=== PATIENT | male | born 1965 | race American Indian/Alaskan Native ===

== ENCOUNTER 2017-11-13 06:52 | Day surgery (SDC) | payer MEDICAID, OTHER, SELFPAY ==
--- NOTE | 2017-11-13 | PATH_ITS ---
[facility] Accession Number: [id number] . 01 Material submitted: . PART A: ANTRAL ULCER BIOPSY PART B: BIOPSY OF GE JUNCTION . 02 Diagnosis: A. Antral Ulcer Biopsy: Portions of antral mucosa with patchy erosion and mild chronic gastritis. Negative for H. pylori organisms by H/E stain and by immunohistochemistry studies. Negative for intestinal metaplasia, dysplasia and malignancy. . B. Biopsy of GE Junction: Squamous mucosa with reactive atypia. A PAS stain for fungal organisms is negative for fungal organisms. No well-preserved glandular epithelium identified for evaluation. Negative for dysplasia or malignancy. [facility]/11/16/2017 . 02 Electronically signed: . Babs Alan MD, Pathologist NPI- [id number] . 01 Gross description: . Part A: ANTRAL ULCER BIOPSY: Received in formalin are 3 fragment(s) of mckeon, soft tissue measuring 0.5 x 0.4 x 0.4 cm to 0.2 x 0.2 x 0.2 cm submitted entirely in 1 cassette(s) Part B: BIOPSY OF GE JUNCTION: Received in formalin are multiple fragment(s) of mckeon, soft tissue measuring 0.4 x 0.4 x 0.1 cm in aggregate submitted entirely in 1 cassette(s) /CKI /CKI . 02 Microscopic: . Immunohistochemical stains are performed to further evaluate for the presence of Helicobacter organisms. The patient tissue is stained with monoclonal antibody to Helicobacter pylori (SP48). Positive and negative controls stain appropriately. . RESULT: Block: A1 Helicobacter pylori: Negative. . * This test was developed and its performance characteristics determined by [facility]. It has not been cleared or approved by the U.S. Food and Drug Administration. The FDA has determined that such clearance or approval is not necessary. This test is used for clinical purposes. It should not be regarded as investigational or for research. . 02 Pathologist provided ICD-10: K29.70 . 02 CPT . 258537, 999240, Y10518, 227774 Performed at: 01 [facility] [address] [id number] MD Tylor Matias MD Phone: [phone] Performed at: 02 [place] [id number] [address] [place] [id number] MD Jordan Mcmahon MD Phone: [phone]
[2017-11-13 07:12] VITALS: BP 161/95; PULSE 72; RESP 16; TEMP 36.3; O2SAT 95; BMI 32.1
--- NOTE | 2017-11-13 08:07 | PM.PREOP ---
Pre-operative Note Interval Note Pre-op Check: Yes History & Physical Reviewed by Physician and Yes Exam Performed Changes: No ASA Class (for procedural sedation): III
[2017-11-13] MEDS: fentaNYL 250 MCG/5 ML INJ IV (08:41)
[2017-11-13] MEDS: LIDOCAINE 4% SOLN 50 ML 20 ML TOP (08:42)
--- NOTE | 2017-11-13 08:42 | PM.OP.ENDO ---
Operative Date/Time/Diagnoses Date of procedure: 11/13/17 Time of procedure: 08:44 Pre-op diagnosis: Dysphagia Post-op diagnosis: same (Gastric ulcer) Procedure & Clinicians Study performed: EGD with cold biopsy Same procedure as scheduled: Yes Indications: Dysphagia Surgeon: Jitendra Jackson Procedure Notes SCOAP/Timeout: Performed Procedure in detail: The patient had topical anesthetic applied to oropharynx. She was placed in left lateral decubitus position and underwent IV sedation directed by the surgeon consisting of fentanyl and Versed. A bite block was inserted and the scope was advanced through it into the esophagus. The esophagus was unremarkable except that it seemed a little patulous. GE junction was noted at 40 cm from the incisors. There was some mild inflammation. There was no narrowing.. The stomach insufflated well. There were no lesions seen in the body, or at the incisura. In the pre-pyloric antrum however there was a visible ulcer with slightly raised edges. The pyloric channel was [patent]. The duodenum was unremarkable to the 4th part, though the transition from the 1st to 2nd part of the duodenum lack the usual sharp turn.. The scope was brought back into the stomach and retroflexed. The proximal stomach[was normal in appearance. There was no evidence of a hiatal hernia. Biopsies were taken of the ulcer]. The scope was straightened and brought out through the esophagus again. Biopsies were taken at the GE junction. The scope was removed and the patient tolerated the procedure well. No obvious obstruction of the esophagus was seen. I did note however that the esophagus seemed a little patulous and this may be a motility issue. Scope withdrawal time: Not applicable Sedation minutes: 17 Findings: gastric ulcer (Pre pyloric antrum) and other findings (Possible mild inflammation of the GE junction) Specimen(s): other (Ulcer biopsies and GE junction biopsies) Complications: none Recommendations: Start medication(s) (Proton pump inhibitor) Follow up: weeks (4) Disposition: PACU
[2017-11-13] MEDS: TETRACAINE/BENZOCAINE/BUTAMBEN (CETACAINE) BOTTLE 1 SPRAY TOP (08:43)
[2017-11-13] MEDS: MIDAZOLAM 5 MG/5 ML VIAL IV (08:43)
[2017-11-13 08:45] VITALS: BP 131/85; PULSE 63; RESP 10; O2SAT 99
[2017-11-13 08:51] VITALS: BP 119/80; PULSE 68; RESP 10; TEMP 36.3; O2SAT 98
[2017-11-13] MEDS: SODIUM CHLORIDE 0.9% 1,000 ML 200 ML IV (08:53)
[2017-11-13 08:56] VITALS: BP 120/82; PULSE 65; RESP 10; O2SAT 98
[2017-11-13 09:02] VITALS: BP 126/89; PULSE 66; RESP 16; O2SAT 99
[2017-11-13 09:06] VITALS: BP 126/86; PULSE 67; RESP 14; TEMP 36.8; O2SAT 98
== END 2017-11-13 09:23 | disposition home or self-care (01) ==
PROVIDERS: Visit Provider Specialist
PROC: 0DJ08ZZ Inspection of Upper Intestinal Tract, Via Natural or Artificial Opening Endoscopic (ICD-10-PCS; CPT 43235; principal; 2017-11-13 07:45)
DX: K29.70 Gastritis, unspecified, without bleeding (principal); K25.9 Gastric ulcer, unspecified as acute or chronic, without hemorrhage or perforation; I10 Essential (primary) hypertension
CPT/HCPCS: 43239; 88305; 88312; 88342; 99152; J2250; J3010

== ENCOUNTER 2020-01-31 10:21 | Emergency (ER) | payer MEDICAID, OTHER, SELFPAY ==
[2020-01-31 10:30] VITALS: BP 120/71; PULSE 114; RESP 18; TEMP 36.9; O2SAT 96; BMI 32.3
--- NOTE | 2020-01-31 11:17 | PC.NURSE ---
Patient was prescription glasses and cannot read the visual acuity and did not want to try. He was asked to open his injured eye and tell me how many fingers I was holding up. I was holding up two fingers. He reported seeing two fingers.
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
[2020-01-31 11:52] VITALS: PULSE 86; RESP 19
[2020-01-31] MEDS: THIAMINE 200 MG/2 ML VIAL 100 MG IV (11:56)
[2020-01-31] MEDS: SODIUM CHLORIDE 0.9% 1,000 ML 1000 ML IV (11:56)
[2020-01-31 11:59] VITALS: BP 113/77; PULSE 89; RESP 21; O2SAT 95
[2020-01-31 12:00] VITALS: BP 115/77; PULSE 86; RESP 19; O2SAT 95
[2020-01-31 12:02] LABS: Add Manual Diff / Slide Review NO; Basophils Absolute Auto 100 /uL (0-100); Basophils Percent Auto 0.8 % (0-2); Eosinophils Absolute Auto 100 /uL (0-450); Eosinophils Percent Auto 0.6 % (2-4); Hematocrit 44.1 % (41-53); Hemoglobin 15.3 g/dL (13.5-17.5); Lymphocytes Absolute Auto 3300 /uL (1100-4500); Lymphocytes Percent Auto 31.9 % (25-40); Mean Corpuscular HGB Conc 34.6 % (30-36); Mean Corpuscular Hemoglobin 33.5 PG (26-34); Mean Corpuscular Volume 96.7 fL (80-100); Monocytes Absolute Auto 400 /uL (0-900); Monocytes Percent Auto 4.2 % (3-14); Neutrophils Absolute Auto 6500 /uL (1500-7000); Neutrophils Percent Auto 62.5 % (50-75); Platelet Count 152 X10^3/uL (150-400); Red Blood Cell Count 4.56 X10^6/uL (4.5-5.9); Red Cell Distribution Width 12.8 % (11.6-14.8); White Blood Cell Count 10.5 X10^3/uL (4.5-11.0)
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
[2020-01-31 12:10] LABS: Alanine Aminotransferase 21 IU/L (<50); Albumin 3.8 g/dL (3.5-5.0); Albumin Globulin Ratio 1.1 (1.0-2.8); Alkaline Phosphatase 78 U/L (38-126); Aspartate Aminotransferase 29 IU/L (17-59); BUN Creatinine Ratio 25.6 (6-22); Bilirubin Total 1.1 mg/dL (0.2-1.3); Blood Urea Nitrogen 23 mg/dL (9-20); Calcium 8.2 mg/dL (8.4-10.2); Carbon Dioxide 28 mmol/L (22-32); Chloride 101 mmol/L (98-107); Estimated Glomerular Filt Rate > 60.0 mL/min (>60); Globulin 3.4 g/dL (1.7-4.1); Glucose 258 mg/dL (70-100); HEMOLYSIS < 15 (0-50); Lipase 171 U/L (23-300); Magnesium 2.2 mg/dL (1.6-2.3); Potassium 3.5 mmol/L (3.4-5.1); Sodium 136 mmol/L (137-145); Total Protein 7.2 g/dL (6.3-8.2)
[2020-01-31 12:20] LABS: Troponin I < 0.012 ng/mL (0.01-0.034)
[2020-01-31 12:28] LABS: Procalcitonin < 0.05 ng/mL (<0.5)
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
[2020-01-31 13:35] VITALS: BP 132/72; PULSE 103; RESP 22; O2SAT 97
== END 2020-01-31 13:37 | disposition home or self-care (01) ==
PROVIDERS: Emergency Provider Emergency Medicine
DX: S05.11XA Contusion of eyeball and orbital tissues, right eye, initial encounter (principal); R55 Syncope and collapse; R07.9 Chest pain, unspecified; Y09 Assault by unspecified means
CPT/HCPCS: 36415; 70450; 70480; 71045; 80053; 83690; 83735; 84145; 84484; 85025; 93005; 96360; 99284

== ENCOUNTER 2020-10-07 14:42 | Emergency (ER) | payer MEDICAID, OTHER, SELFPAY ==
[2020-10-07 14:42] VITALS: BP 139/86; PULSE 95; RESP 16; TEMP 37.8; O2SAT 98; BMI 29.0
[2020-10-07 15:13] LABS: Add Manual Diff / Slide Review NO; Basophils Absolute Auto 0 /uL (0-100); Basophils Percent Auto 0.5 % (0-2); Eosinophils Absolute Auto 0 /uL (0-450); Eosinophils Percent Auto 0.3 % (2-4); Hemoglobin 14.1 g/dL (13.5-17.5); Lymphocytes Absolute Auto 700 /uL (1100-4500); Lymphocytes Percent Auto 21.3 % (25-40); Mean Corpuscular HGB Conc 34.4 % (30-36); Mean Corpuscular Volume 98.9 fL (80-100); Monocytes Absolute Auto 400 /uL (0-900); Monocytes Percent Auto 11.3 % (3-14); Neutrophils Absolute Auto 2300 /uL (1500-7000); Neutrophils Percent Auto 66.6 % (50-75); Platelet Count 99 X10^3/uL (150-400); Red Blood Cell Count 4.15 X10^6/uL (4.5-5.9); Red Cell Distribution Width 14.1 % (11.6-14.8); White Blood Cell Count 3.5 X10^3/uL (4.5-11.0)
[2020-10-07 15:18] LABS: Alanine Aminotransferase 75 IU/L (<50); Albumin Globulin Ratio 1.1 (1.0-2.8); Alkaline Phosphatase 75 U/L (38-126); Aspartate Aminotransferase 111 IU/L (17-59); BUN Creatinine Ratio 13.4 (6-22); Bilirubin Total 0.8 mg/dL (0.2-1.3); Blood Urea Nitrogen 11 mg/dL (9-20); Calcium 8.8 mg/dL (8.4-10.2); Carbon Dioxide 28 mmol/L (22-32); Chloride 97 mmol/L (98-107); Estimated Glomerular Filt Rate > 60.0 mL/min (>60); Globulin 3.6 g/dL (1.7-4.1); Glucose 154 mg/dL (70-100); HEMOLYSIS 17 (0-50); Lipase 163 U/L (23-300); Potassium 3.7 mmol/L (3.4-5.1); Sodium 132 mmol/L (137-145); Total Protein 7.6 g/dL (6.3-8.2)
--- NOTE | 2020-10-07 19:06 | ED.GENADULT ---
HPI - General Adult General Chief complaint: Abdominal Pain Stated complaint: COVID +, abd pain Time Seen by Provider: 10/07/20 15:01 Source: patient Mode of arrival: Ambulatory Limitations: no limitations History of Present Illness HPI narrative: 55-year-old gentleman with a history of diabetes and hypertension presents on day 4 of COVID symptoms. He was exposed on Sunday begin feeling unwell on Sunday on Sunday tested positive and today, is having body aches has been vomiting for 24 hours and can not keep liquids down and having increasing abdominal pain. He also notes headache light sensitivity. No specific chest pain or palpitations. No skin changes. No cognitive complaints or gross neurologic complaints other than global weakness. Related Data Home Medications Medication Instructions Recorded Confirmed losartan 50 mg tablet 50 mg PO BID tab 10/17/17 10/17/17 meloxicam 15 mg tablet 11/13/17 Previous Rx's Medication Instructions Recorded omeprazole 20 mg capsule,delayed 20 mg PO BID #60 cap 11/13/17 release benzonatate 100 mg capsule 100 mg PO BID-TID PRN #20 cap 10/07/20 (Agustina Soliz) ondansetron 4 mg disintegrating 4 mg PO Q8H PRN #20 tab 10/07/20 tablet Allergies Allergy/AdvReac Type Severity Reaction Status Date / Time lisinopril [LISINOPRIL] Allergy Unknown Verified 10/07/20 14:42 Review of Systems Review of Systems Narrative: Remainder of complete review of systems is otherwise unremarkable except for that included in the HPI. Patient History Medical History (Updated 10/07/20 @ 19:23 by Amanda Sahu MD) Arthritis of knee, left HTN (hypertension) Surgical History H/O arthroscopy Family History Father Hypertension Brother Cancer Social History household members: family and children Smoking Status: Current every day smoker substance use type: marijuana Smoking Status: Current every day smoker tobacco type: cigarettes alcohol intake frequency: 3 or more drinks per day Alcohol type: beer Substance Use Type: marijuana Exam Narrative Exam Narrative: General: Appears is if he feels unwell but Able to give a complete and coherent history. Well-nourished well-developed HEENT: Moist mucous membranes, normal sclera with reactive pupils, Neck: No JVD, supple Respiratory: Lungs are clear to auscultation, no wheezing no rales no rhonchi. Full and symmetrical air movement Cardiac: Tachycardia with Regular rate and rhythm no murmurs no bruits Abdomen: Soft, diffusely tender with no rebound or guarding, good bowel tones, no flank pain Skin: Warm and dry, no rashes Neurologic: Grossly neurologically intact with no obvious asymmetries or abnormalities. Photosensitivity Extremities: No trauma, well perfused, no lower extremity edema Psych: Cooperative, appropriate insight and affect Initial Vital Signs Initial Vital Signs: Vital Signs Temperature 100.0 F H 10/07/20 14:42 Pulse Rate 95 H 10/07/20 14:42 Respiratory Rate 16 10/07/20 14:42 Blood Pressure 139/86 10/07/20 14:42 Pulse Oximetry 98 10/07/20 14:42 Course Orders Ordered: Discontinued Medications Sodium Chloride (Normal Saline 0.9%) 1,000 mls @ 1,000 mls/hr IV BOLUS ONE Stop: 10/07/20 20:24 Last Infusion: 10/07/20 20:33 Dose: 0 mls/hr Documented by: Admin: 10/07/20 19:28 Dose: 1,000 mls/hr Documented by: JIN Ketorolac Tromethamine (Ketorolac 30 Mg/Ml Vial) 15 mg IV NOW ONE Stop: 10/07/20 19:26 Last Admin: 10/07/20 19:27 Dose: 15 mg Documented by: JIN Ondansetron HCl (Ondansetron 4 Mg/2 Ml Inj) 4 mg IV NOW ONE Stop: 10/07/20 19:26 Last Admin: 10/07/20 19:27 Dose: 4 mg Documented by: JIN Vital Signs Vital signs: Vital Signs - 8 hr 10/07/20 14:42 10/07/20 20:18 Temperature 100.0 F H Pulse Rate 95 H 106 H Respiratory Rate 16 30 H Blood Pressure 139/86 Pulse Oximetry 98 93 Medical Decision Making Lab Data Result diagrams: 10/07/20 15:00 10/07/20 15:00 Labs: Lab Results 10/07/20 10/07/20 Range/Units 15:00 15:00 WBC 3.5 L (4.5-11.0) X10^3/uL RBC 4.15 L (4.5-5.9) X10^6/uL Hgb 14.1 (13.5-17.5) g/dL Hct 41.0 (41-53) % MCV 98.9 (80-100) fL MCH 34.0 (26-34) PG MCHC 34.4 (30-36) % RDW 14.1 (11.6-14.8) % Plt Count 99 L (150-400) X10^3/uL Neut % (Auto) 66.6 (50-75) % Lymph % (Auto) 21.3 L (25-40) % [place] % (Auto) 11.3 (3-14) % Eos % (Auto) 0.3 L (2-4) % Baso % (Auto) 0.5 (0-2) % Neut # (Auto) 2300 (0073-5104) /uL Lymph # (Auto) 700 L (5188-6948) /uL [place] # (Auto) 400 (0-900) /uL Eos # (Auto) 0 (0-450) /uL Baso # (Auto) 0 (0-100) /uL Sodium 132 L (137-145) mmol/L Potassium 3.7 (3.4-5.1) mmol/L Chloride 97 L (98-107) mmol/L Carbon Dioxide 28 (22-32) mmol/L BUN 11 (9-20) mg/dL Creatinine 0.82 (0.66-1.25) mg/dL Estimated GFR > 60.0 (>60) mL/min BUN/Creatinine Ratio 13.4 (6-22) Glucose 154 H (70-100) mg/dL Calcium 8.8 (8.4-10.2) mg/dL Total Bilirubin 0.8 (0.2-1.3) mg/dL AST 111 H (17-59) IU/L ALT 75 H (<50) IU/L Alkaline Phosphatase 75 (38-126) U/L Total Protein 7.6 (6.3-8.2) g/dL Albumin 4.0 (3.5-5.0) g/dL Globulin 3.6 (1.7-4.1) g/dL Albumin/Globulin Ratio 1.1 (1.0-2.8) Lipase 163 (23-300) U/L MDM Narrative Medical decision making narrative: 55-year-old gentleman on day 4 of COVID symptoms with a history of diabetes and hypertension. At this point oxygen saturations remain in the 98-100 range on room air. He is given a L of fluid due to the persistent vomiting and inability to drink. He will be discharged home with instructions for myalgias, Tessalon to control cough and Zofran to control nausea. Clearly reviewed reasons to have him return to the emergency room. Has a high risk for needing to be admitted to the hospital as he is so symptomatic already on day 4 of his disease. Discharge Plan Departure Patient Disposition: Home Clinical Impression: COVID-19 Nausea & vomiting Qualifiers: Vomiting type: unspecified Vomiting Intractability: non-intractable Qualified Code(s): R11.2 - Nausea with vomiting, unspecified Instructions: DI for COVID-19 (Suspected or Confirmed ) Activity Restrictions/Additional Instructions: I am sorry that you are feeling so poorly on day 4 of your COVID infection. Using 400 mg of ibuprofen (2 qhez-egu-gombazx pills) and 1 Tylenol every 6 hours can be very helpful in controlling pain. I will give you a prescription for ondansetron to help with nausea A prescription for Tessalon Perles to help with cough If you find that you are getting so short of breath that your having difficulty walking across the room, you do need to return to the emergency department Please do your best to stay as hydrated as possible I wish you the very best Prescriptions: New ondansetron 4 mg tablet,disintegrating 4 mg PO Q8H PRN (Reason: nausea and vomiting) Qty: 20 RF: 0 benzonatate [Tessalon Perles] 100 mg capsule 100 mg PO BID-TID PRN (Reason: cough) Qty: 20 RF: 0 No Action losartan 50 mg tablet 50 mg PO BID RF: 0 meloxicam 15 mg Tablet RF: 0 omeprazole 20 mg capsule,delayed release(DR/EC) 20 mg PO BID Qty: 60 RF: 4
[2020-10-07] MEDS: KETOROLAC 30 MG/ML VIAL 15 MG IV (19:27)
[2020-10-07] MEDS: ONDANSETRON 4 MG/2 ML INJ IV (19:27)
[2020-10-07] MEDS: SODIUM CHLORIDE 0.9% 1,000 ML 1000 ML IV (19:28)
[2020-10-07 20:18] VITALS: PULSE 106; RESP 30; O2SAT 93
[2020-10-07 20:25] VITALS: BP 135/77
== END 2020-10-07 20:32 | disposition home or self-care (01) ==
PROVIDERS: Emergency Medicine; Emergency Provider Emergency Medicine
DX: U07.1 COVID-19 (principal); R11.2 Nausea with vomiting, unspecified
CPT/HCPCS: 80053; 83690; 85025; 93005; 96361; 96374; 96375; 99284; J1885; J2405

== ENCOUNTER 2020-12-02 14:34 | Observation (INO) | payer MEDICAID, OTHER, SELFPAY ==
[2020-12-02] VITALS (25 sets, daily range): BP systolic 102–126; BP diastolic 56–83; PULSE 80–127; RESP 16–22; TEMP 36.4–36.8; O2SAT 96–100; BMI 26.7
--- NOTE | 2020-12-02 15:23 | ED.GENADULT ---
HPI - General Adult General Chief complaint: Weakness Stated complaint: hypotensive Time Seen by Provider: 12/02/20 14:47 Source: patient Mode of arrival: EMS Limitations: no limitations History of Present Illness HPI narrative: 55-year-old gentleman [facility] and is found to be hypotensive and is transferred to the emergency department for further evaluation. He has a history of alcohol use disorder with multiple ER visits to [facility] for the same. He was diagnosed with COVID-19 at the end of September and 4 days after diagnosis was admitted to [facility] for acute hypoxic respiratory failure. Did receive a full course of remdesivir as well as dexamethasone and eventually left Against Medical Advice on 6 L of oxygen. He had at least 3 additional visits in the interval for alcohol related complaints. Today, he reports that he is having trouble swallowing, coughing, complains of left-sided chest pain that is been there for 5-7 days feels like he got ?punched in the chest?. States that the swallowing issue is an intermittent problem and has been going on for number of years. He continues to complain of exertional dyspnea and fatigue since his discharge home from the hospital. He tells me that he has not had any drug or alcohol use since his hospital discharge. Complains of diffuse abdominal pain but also notes he has not had a bowel movement for the last 4-5 days. Over the last week he is concerned that he is having worsening exertional dyspnea. He stated that he had been increasing activities since his hospital discharge in was back to the point where he could at least ride his bike on a flat surface and over the last week has not been able to do that. Describes no fevers, no orthopnea, no lower extremity edema. No headaches and no jaundice. No recent vomiting. Related Data Home Medications Medication Instructions Recorded Confirmed metformin 500 mg tablet 500 mg PO QAM 12/03/20 12/03/20 Previous Rx's Medication Instructions Recorded ondansetron 4 mg disintegrating 4 mg PO Q8H PRN #20 tab 10/07/20 tablet Allergies Allergy/AdvReac Type Severity Reaction Status Date / Time lisinopril [LISINOPRIL] Allergy Unknown Verified 10/07/20 14:42 Review of Systems Review of Systems Narrative: Remainder of complete review of systems is otherwise unremarkable except for that included in the HPI. Patient History Medical History Alcohol use disorder Arthritis of knee, left COVID-19 HTN (hypertension) Type 2 diabetes mellitus Surgical History H/O arthroscopy Family History Father Hypertension Brother Cancer Social History household members: family and children Smoking Status: Current every day smoker alcohol intake: former substance use type: marijuana Smoking Status: Current every day smoker tobacco type: cigarettes alcohol intake frequency: 3 or more drinks per day Alcohol type: beer Substance Use Type: marijuana Exam Narrative Exam Narrative: General: Healthy appearing, in no acute distress. Able to give a complete and coherent history. Well-nourished well-developed HEENT: Moist mucous membranes, normal sclera with reactive pupils, Neck: No JVD, supple Respiratory: Lungs are clear to auscultation, no wheezing no rales no rhonchi. Full and symmetrical air movement Cardiac: Regular rate and rhythm no murmurs no bruits Chest: Significant pain along left sternal border and with palpation of left-sided chest wall Abdomen: Soft, mild diffuse tenderness in all quadrants without rebound or guarding, good bowel tones, no flank pain Skin: Warm and dry, no rashes Neurologic: Grossly neurologically intact with no obvious asymmetries or abnormalities Extremities: No trauma, well perfused Psych: Cooperative, appropriate insight and affect Initial Vital Signs Initial Vital Signs: Vital Signs Temperature 97.6 F 12/02/20 14:40 Pulse Rate 82 12/02/20 14:40 Respiratory Rate 18 12/02/20 14:40 Blood Pressure 108/65 12/02/20 14:40 Pulse Oximetry 100 12/02/20 14:40 Course Orders Ordered: Discontinued Medications Acetaminophen (Acetaminophen 325 Mg Tablet) 650 mg PO Q6HR PRN PRN Reason: Fever/Mild Pain (1-3) Enoxaparin Sodium (Enoxaparin 30 Mg/0.3 Ml Syringe) 30 mg SUBCUT DAILY [facility] Last Admin: 12/03/20 10:03 Dose: Not Given Documented by: DANTE Folic Acid (Folic Acid 1 Mg Tablet) 1 mg PO DAILY [facility] Last Admin: 12/03/20 10:03 Dose: Not Given Documented by: DANTE Sodium Chloride (Normal Saline 0.9%) 1,000 mls @ 100 mls/hr IV CONT MARIAH Last Admin: 12/03/20 01:49 Dose: Not Given Documented by: DELMY Sodium Chloride (Normal Saline 0.9%) 1,000 mls @ 60 mls/hr IV CONT MARIAH POTASSIUM CHLORIDE IN WATER (Potassium Cl 10 Meq/100 Ml Nina) 10 meq in 100 mls @ 100 mls/hr IV Q1H MARIAH Stop: 12/03/20 04:14 Last Infusion: 12/03/20 08:18 Dose: 0 mls/hr Documented by: Admin: 12/03/20 04:18 Dose: 100 mls/hr Documented by: Infusion: 12/03/20 04:14 Dose: 100 mls/hr Documented by: Admin: 12/03/20 03:14 Dose: 100 mls/hr Documented by: Infusion: 12/03/20 02:40 Dose: 100 mls/hr Documented by: Admin: 12/03/20 01:40 Dose: 100 mls/hr Documented by: Infusion: 12/03/20 01:21 Dose: 100 mls/hr Documented by: Admin: 12/03/20 00:21 Dose: 100 mls/hr Documented by: DELMY Sodium Chloride (Normal Saline 0.9%) 1,000 mls @ 100 mls/hr IV CONT MARIAH Last Infusion: 12/03/20 07:46 Dose: 0 mls/hr Documented by: Admin: 12/03/20 00:52 Dose: 100 mls/hr Documented by: PREETIENDShaheed Sodium Chloride (Normal Saline 0.9%) 1,000 mls @ 1,000 mls/hr IV BOLUS ONE Stop: 12/03/20 08:14 Last Admin: 12/03/20 07:46 Dose: 1,000 mls/hr Documented by: DANTE Ketorolac Tromethamine (Ketorolac 30 Mg/Ml Vial) 15 mg IV NOW ONE Stop: 12/02/20 15:32 Last Admin: 12/02/20 15:40 Dose: 15 mg Documented by: SONYA Lorazepam (Lorazepam 2 Mg/Ml Inj) 0 mg IV CIWAPRN PRN; Protocol PRN Reason: Alcohol Withdrawal Metformin HCl (Metformin Hcl 500 Mg Tablet) 500 mg PO BID [facility] Multivitamins (Multivitamin 1 Tablet) 1 tab PO DAILY [facility] Last Admin: 12/03/20 10:04 Dose: Not Given Documented by: DANTE Naloxone HCl (Naloxone 0.4 Mg/Ml Vial) 0.2 mg IV Q2MIN PRN PRN Reason: Opiate Reversal Non-Formulary Medication (Losartan-Hydrochlorothiazide) 1 tab PO QAM [facility] Ondansetron HCl (Ondansetron 4 Mg/2 Ml Inj) 4 mg IV Q6HR PRN PRN Reason: Nausea And Vomiting Pantoprazole Sodium (Pantoprazole Dr 20 Mg Tablet) 20 mg PO 0600 [facility] Last Admin: 12/03/20 06:04 Dose: 20 mg Documented by: DELMY Thiamine HCl (Thiamine 100 Mg Tablet) 100 mg PO DAILY [facility] Stop: 12/06/20 09:01 Last Admin: 12/03/20 10:04 Dose: Not Given Documented by: DANTE Vital Signs Vital signs: Vital Signs - 8 hr 12/02/20 14:40 12/02/20 15:00 12/02/20 15:30 Temperature 97.6 F Pulse Rate 82 81 80 Respiratory Rate 18 16 20 Blood Pressure 108/65 115/72 110/72 Pulse Oximetry 100 98 100 12/02/20 15:53 12/02/20 16:00 12/02/20 16:15 Temperature Pulse Rate 84 81 81 Respiratory Rate 19 17 18 Blood Pressure 117/74 118/78 Pulse Oximetry 100 100 100 12/02/20 16:30 12/02/20 16:45 12/02/20 17:00 Temperature Pulse Rate 86 83 81 Respiratory Rate 21 19 20 Blood Pressure 123/77 124/80 125/79 Pulse Oximetry 100 100 100 12/02/20 17:15 12/02/20 17:30 Temperature Pulse Rate 85 85 Respiratory Rate 20 20 Blood Pressure 121/80 121/80 Pulse Oximetry 100 99 Medical Decision Making Lab Data Result diagrams: 12/03/20 04:18 12/03/20 04:18 Labs: Lab Results 12/02/20 12/02/20 12/02/20 Range/Units 14:14 14:14 14:14 WBC 8.8 (4.5-11.0) X10^3/uL RBC 4.37 L (4.5-5.9) X10^6/uL Hgb 14.5 (13.5-17.5) g/dL Hct 42.2 (41-53) % MCV 96.6 (80-100) fL MCH 33.2 (26-34) PG MCHC 34.4 (30-36) % RDW 15.2 H (11.6-14.8) % Plt Count 129 L (150-400) X10^3/uL Neut % (Auto) 67.6 (50-75) % Lymph % (Auto) 20.8 L (25-40) % [place] % (Auto) 7.0 (3-14) % Eos % (Auto) 4.0 (2-4) % Baso % (Auto) 0.6 (0-2) % Neut # (Auto) 6000 (2231-6775) /uL Lymph # (Auto) 1800 (1351-7039) /uL [place] # (Auto) 600 (0-900) /uL Eos # (Auto) 400 (0-450) /uL Baso # (Auto) 100 (0-100) /uL D-Dimer 514 H (<230) ng/mL Sodium 135 L (137-145) mmol/L Potassium 3.6 (3.4-5.1) mmol/L Chloride 101 (98-107) mmol/L Carbon Dioxide 26 (22-32) mmol/L BUN 24 H (9-20) mg/dL Creatinine 2.63 H (0.66-1.25) mg/dL Estimated GFR 25.6 L (>60) mL/min BUN/Creatinine Ratio 9.1 (6-22) Glucose 140 H (70-100) mg/dL Hemoglobin A1c (4.0-6.0) % Calcium 9.8 (8.4-10.2) mg/dL Magnesium 2.0 (1.6-2.3) mg/dL Total Bilirubin 2.1 H (0.2-1.3) mg/dL AST 57 (17-59) IU/L ALT 26 (<50) IU/L Alkaline Phosphatase 79 (38-126) U/L Troponin I < 0.012 (0.01-0.034) ng/mL Total Protein 7.9 (6.3-8.2) g/dL Albumin 4.3 (3.5-5.0) g/dL Globulin 3.6 (1.7-4.1) g/dL Albumin/Globulin Ratio 1.2 (1.0-2.8) Lipase 416 H (23-300) U/L 12/02/20 Range/Units 14:14 WBC (4.5-11.0) X10^3/uL RBC (4.5-5.9) X10^6/uL Hgb (13.5-17.5) g/dL Hct (41-53) % MCV (80-100) fL MCH (26-34) PG MCHC (30-36) % RDW (11.6-14.8) % Plt Count (150-400) X10^3/uL Neut % (Auto) (50-75) % Lymph % (Auto) (25-40) % [place] % (Auto) (3-14) % Eos % (Auto) (2-4) % Baso % (Auto) (0-2) % Neut # (Auto) (6942-6516) /uL Lymph # (Auto) (3428-1508) /uL [place] # (Auto) (0-900) /uL Eos # (Auto) (0-450) /uL Baso # (Auto) (0-100) /uL D-Dimer (<230) ng/mL Sodium (137-145) mmol/L Potassium (3.4-5.1) mmol/L Chloride (98-107) mmol/L Carbon Dioxide (22-32) mmol/L BUN (9-20) mg/dL Creatinine (0.66-1.25) mg/dL Estimated GFR (>60) mL/min BUN/Creatinine Ratio (6-22) Glucose (70-100) mg/dL Hemoglobin A1c 7.6 H (4.0-6.0) % Calcium (8.4-10.2) mg/dL Magnesium (1.6-2.3) mg/dL Total Bilirubin (0.2-1.3) mg/dL AST (17-59) IU/L ALT (<50) IU/L Alkaline Phosphatase (38-126) U/L Troponin I (0.01-0.034) ng/mL Total Protein (6.3-8.2) g/dL Albumin (3.5-5.0) g/dL Globulin (1.7-4.1) g/dL Albumin/Globulin Ratio (1.0-2.8) Lipase (23-300) U/L MDM Narrative Medical decision making narrative: 55-year-old gentleman with COVID requiring hospitalization in early December. Continued episodes of intermittent alcohol use. Presents with dehydration general lays acute kidney injury with a jump in creatinine from 0.8 to to 2.63. Initially hypotensive with a systolic of 70 responded nicely to fluids. Bilirubin is elevated at 2.1 but AST and ALT are unremarkable as is alk-phos. Lipase is slightly elevated at 14.6 without abdominal pain or tenderness. He has no evidence of acute infection. At this point, most likely explanation is significant dehydration causing his hypotension and acute bump to creatinine. Will recommend hospitalization for rehydration and continuing to follow creatinine levels. Discharge Plan Departure Patient Disposition: Home Clinical Impression: Acute kidney injury, Acute hypotension
--- NOTE | 2020-12-02 15:31 | DI.RAD.S_ITS ---
PROCEDURE: XR CHEST 1V INDICATIONS: exertional dyspnea TECHNIQUE: One view of the chest was acquired. COMPARISON: [facility], CR, XR CHEST 1V, 01/31/2020, 11:48. [facility], CR, XR CHEST 1 VIEW, 10/13/2020, 2:07. FINDINGS: Surgical changes and devices: None. Lungs and pleura: Lungs are clear. No pleural effusions or pneumothorax. Mediastinum: Mediastinal contours appear normal. Heart size is normal. Bones and chest wall: No suspicious bony lesions. Overlying soft tissues appear unremarkable. IMPRESSION: No acute pulmonary process. Dictated by: Xochilt Roach M.D. on 12/02/2020 at 16:07 Approved by: Xochilt Roach M.D. on 12/02/2020 at 16:08
[2020-12-02 15:38] LABS: Add Manual Diff / Slide Review NO; Basophils Absolute Auto 100 /uL (0-100); Basophils Percent Auto 0.6 % (0-2); Eosinophils Absolute Auto 400 /uL (0-450); Hematocrit 42.2 % (41-53); Hemoglobin 14.5 g/dL (13.5-17.5); Lymphocytes Absolute Auto 1800 /uL (1100-4500); Lymphocytes Percent Auto 20.8 % (25-40); Mean Corpuscular HGB Conc 34.4 % (30-36); Mean Corpuscular Hemoglobin 33.2 PG (26-34); Mean Corpuscular Volume 96.6 fL (80-100); Monocytes Absolute Auto 600 /uL (0-900); Neutrophils Absolute Auto 6000 /uL (1500-7000); Neutrophils Percent Auto 67.6 % (50-75); Platelet Count 129 X10^3/uL (150-400); Red Blood Cell Count 4.37 X10^6/uL (4.5-5.9); Red Cell Distribution Width 15.2 % (11.6-14.8); White Blood Cell Count 8.8 X10^3/uL (4.5-11.0)
[2020-12-02] MEDS: KETOROLAC 30 MG/ML VIAL 15 MG IV (15:40)
[2020-12-02 15:43] LABS: D Dimer 514 ng/mL (<230)
[2020-12-02 15:44] LABS: Alanine Aminotransferase 26 IU/L (<50); Albumin 4.3 g/dL (3.5-5.0); Albumin Globulin Ratio 1.2 (1.0-2.8); Alkaline Phosphatase 79 U/L (38-126); Aspartate Aminotransferase 57 IU/L (17-59); BUN Creatinine Ratio 9.1 (6-22); Bilirubin Total 2.1 mg/dL (0.2-1.3); Blood Urea Nitrogen 24 mg/dL (9-20); Calcium 9.8 mg/dL (8.4-10.2); Carbon Dioxide 26 mmol/L (22-32); Chloride 101 mmol/L (98-107); Estimated Glomerular Filt Rate 25.6 mL/min (>60); Globulin 3.6 g/dL (1.7-4.1); Glucose 140 mg/dL (70-100); HEMOLYSIS < 15 (0-50); Lipase 416 U/L (23-300); Potassium 3.6 mmol/L (3.4-5.1); Sodium 135 mmol/L (137-145); Total Protein 7.9 g/dL (6.3-8.2)
[2020-12-02 15:55] LABS: Troponin I < 0.012 ng/mL (0.01-0.034)
[2020-12-02 21:16] LABS: INR 1.1 (0.9-1.3); Prothrombin Time 12.6 SECONDS (10.1-12.7)
[2020-12-02 21:28] LABS: Alanine Aminotransferase 23 IU/L (<50); Albumin 3.6 g/dL (3.5-5.0); Albumin Globulin Ratio 1.2 (1.0-2.8); Alkaline Phosphatase 59 U/L (38-126); Aspartate Aminotransferase 47 IU/L (17-59); BUN Creatinine Ratio 12.6 (6-22); Bilirubin Total 1.7 mg/dL (0.2-1.3); Blood Urea Nitrogen 23 mg/dL (9-20); Calcium 9.1 mg/dL (8.4-10.2); Carbon Dioxide 27 mmol/L (22-32); Chloride 103 mmol/L (98-107); Estimated Glomerular Filt Rate 39.2 mL/min (>60); Globulin 2.9 g/dL (1.7-4.1); Glucose 168 mg/dL (70-100); HEMOLYSIS < 15 (0-50); Potassium 3.3 mmol/L (3.4-5.1); Sodium 136 mmol/L (137-145); Total Protein 6.5 g/dL (6.3-8.2)
[2020-12-02 21:29] LABS: COVID19 - ADMIT (NP swab/PCR) Negative (Negative)
[2020-12-02 21:37] LABS: NT-proBNP (BNP-Adult 18+) 58 pg/mL (<125)
[2020-12-02 21:52] LABS: Magnesium 1.8 mg/dL (1.6-2.3)
--- NOTE | 2020-12-02 23:51 | P.HP_ITS ---
History of Present Illness History of Present Illness Date Patient Seen: 12/02/20 Time Patient Seen: 19:45 Chief complaint: hypotensive Narrative: Logan Anguiano is a 55-year-old gentleman whom presented to the Outpatient Clinic and was found to be hypotensive and was transferred to the ED for further evaluation. He has a history of alcohol use disorder with multiple ER visits to [facility] for the same. He was diagnosed with COVID-19 at the end of September and 4 days after diagnosis was admitted to [facility] for acute hypoxic respiratory failure. Did receive a full course of remdesivir as well as dexamethasone and eventually left Against Medical Advice on 6 L of oxygen. He had at least 3 additional visits in the interval for alcohol related complaints. Today, he reports that he is having trouble swallowing, coughing, complains of left-sided chest pain that is been there for 5-7 days feels like he got ?punched in the chest?. States that the swallowing issue is an intermittent problem and has been going on for number of years. He continues to complain of exertional dyspnea and fatigue since his discharge home from the hospital. He tells me that he has not had any drug or alcohol use since his hospital discharge. Complains of diffuse abdominal pain but also notes he has not had a bowel movement for the last 4-5 days. Over the last week he is concerned that he is having worsening exertional dyspnea. He stated that he had been increasing activities since his hospital discharge in was back to the point where he could at least ride his bike on a flat surface and over the last week has not been able to do that. Describes no fevers, no orthopnea, no lower extremity edema. No headaches and no jaundice. No recent vomiting. Upon admit patient's vitals are stable temp 97.6?, BP 121/80, HR 85, R 20, O2 saturation 96% on room air. Patient has no elevated WBC, H&H are stable, platelets 129., sodium 135, BUN 24, SHAISTA with creatinine 2.63, last creatinine 0.82, glucose 140, GFR 25.6, last known GFR >60. D-dimer 514, initial troponin WNL, lipase 416, chest x-ray demonstrated no acute cardiopulmonary processes. I personally reviewed EKG normal sinus rhythm with a ventricular rate of [address] or T-wave changes. Patient admitted for acute dehydration resulting in severe hypotension and SHAISTA. Patient History Medical History Alcohol use disorder Arthritis of knee, left COVID-19 HTN (hypertension) Type 2 diabetes mellitus Surgical History H/O arthroscopy Family & Social History Family History Father Hypertension Brother Cancer Social History: household members family,children Prior Living Arrangements House Safety & Behavioral: Feels Safe in Current Yes Environment Been Physically Hurt or No Threatened By a Person Suicidal Ideation Description None Suicide Plan Description No Plan Tobacco & Substance use: Smoking Status Current every day smoker Smoking packs per day 0.5 alcohol intake former alcohol intake frequency 3 or more drinks per day Substance Use Type marijuana Meds Home Medications and Allergies Home Medications Medication Instructions Recorded Confirmed Type losartan 50 mg tablet 50 mg PO BID tab 10/17/17 10/17/17 History meloxicam 15 mg tablet 11/13/17 History omeprazole 20 mg capsule,delayed 20 mg PO BID #60 cap 11/13/17 Rx release benzonatate 100 mg capsule 100 mg PO BID-TID PRN #20 cap 10/07/20 Rx (Tessalon Perllilian) ondansetron 4 mg disintegrating 4 mg PO Q8H PRN #20 tab 10/07/20 Rx tablet Allergies Allergy/AdvReac Type Severity Reaction Status Date / Time lisinopril [LISINOPRIL] Allergy Unknown Verified 10/07/20 14:42 Review of Systems Review of Systems Narrative: All 12 point systems reviewed with the patient and are negative except otherwise documented. Exam Vital Signs (past 8 hours): - 12/02/20 15:53 12/02/20 16:00 12/02/20 16:15 Temperature Pulse Rate 84 81 81 Respiratory Rate 19 17 18 Blood Pressure 117/74 118/78 Pulse Oximetry 100 100 100 12/02/20 16:30 12/02/20 16:45 12/02/20 17:00 Temperature Pulse Rate 86 83 81 Respiratory Rate 21 19 20 Blood Pressure 123/77 124/80 125/79 Pulse Oximetry 100 100 100 12/02/20 17:15 12/02/20 17:30 12/02/20 17:45 Temperature Pulse Rate 85 85 84 Respiratory Rate 20 20 22 Blood Pressure 121/80 121/80 124/82 Pulse Oximetry 100 99 100 12/02/20 18:00 12/02/20 18:15 12/02/20 18:30 Temperature Pulse Rate 86 85 85 Respiratory Rate 21 20 21 Blood Pressure 115/75 115/76 117/77 Pulse Oximetry 98 100 100 12/02/20 18:45 12/02/20 19:00 12/02/20 19:15 Temperature Pulse Rate 84 83 86 Respiratory Rate 20 20 20 Blood Pressure 119/79 126/83 118/75 Pulse Oximetry 99 99 98 12/02/20 19:30 12/02/20 20:00 12/02/20 20:30 Temperature Pulse Rate 88 91 H 91 H Respiratory Rate 21 22 22 Blood Pressure 116/79 102/56 L 119/77 Pulse Oximetry 98 98 97 12/02/20 21:00 12/02/20 21:05 12/02/20 21:10 Temperature 98.3 F 98.3 F Pulse Rate 95 H 127 H 127 H Respiratory Rate 21 17 17 Blood Pressure 109/76 109/76 Pulse Oximetry 97 96 96 Oxygen Delivery Method Room Air Oxygen Flow Rate 0 Narrative Exam Narrative: General: Patient is a well-developed, well-nourished male in no distress at this time. HEENT: Normocephalic, atraumatic, extraocular muscles intact, oral pharynx is clear and mucous membranes are moist. Neck is supple and symmetric, trachea is midline, no adenopathy, no thyroid enlargement, nontender, no masses palpated. Negative for JVD Chest: Normal AP diameter and contour without kyphoscoliosis, no nasal flaring, retractions, or tachypneic labored breathing, able to speak in complete sentences. Lungs: Auscultation of all lung salmeron are dimished equal with mild bibasilar crackles. Cardio: S1 & S2 with regular rate and rhythm without murmur, rubs, or gallops, no carotid bruit, no cardiac pulsations present. Abdomen: Soft nontender, negative for organomegaly, or masses. Bowel sounds are present in all 4 quadrants without guarding or rebound, no CVA tenderness. Musculoskeletal: Muscle strength and tone are equal within normal limits, no deformity, crepitus, effusions, cyanosis, clubbing or edema present. Full range of motion intact radial and pedal pulses are normal. Skin: Warm dry and intact without rashes, ulcerations or petechiae. Neuro: Alert and orientated x3, strength is +5/5 in all extremities, sensation to touch intact, no gross deficits noted of cranial nerves. Psych: Patient has a well-kept appearance, appropriate affect, mental status attitude thought context and judgment are appropriate for age. Objective Labs Result Diagrams: 12/02/20 14:14 12/02/20 20:54 Labs: Laboratory Results - last 24 hr 12/02/20 12/02/20 12/02/20 14:14 14:14 14:14 WBC 8.8 RBC 4.37 L Hgb 14.5 Hct 42.2 MCV 96.6 MCH 33.2 MCHC 34.4 RDW 15.2 H Plt Count 129 L Neut % (Auto) 67.6 Lymph % (Auto) 20.8 L [place] % (Auto) 7.0 Eos % (Auto) 4.0 Baso % (Auto) 0.6 Neut # (Auto) 6000 Lymph # (Auto) 1800 [place] # (Auto) 600 Eos # (Auto) 400 Baso # (Auto) 100 PT INR D-Dimer 514 H Sodium 135 L Potassium 3.6 Chloride 101 Carbon Dioxide 26 BUN 24 H Creatinine 2.63 H Estimated GFR 25.6 L BUN/Creatinine Ratio 9.1 Glucose 140 H Calcium 9.8 Magnesium 2.0 Total Bilirubin 2.1 H AST 57 ALT 26 Alkaline Phosphatase 79 Troponin I < 0.012 NT-Pro-B Natriuret Pep Total Protein 7.9 Albumin 4.3 Globulin 3.6 Albumin/Globulin Ratio 1.2 Lipase 416 H Nasal Screen MRSA (PCR) SARS-CoV-2 (PCR) 12/02/20 12/02/20 12/02/20 20:07 20:10 20:54 WBC RBC Hgb Hct MCV MCH MCHC RDW Plt Count Neut % (Auto) Lymph % (Auto) [place] % (Auto) Eos % (Auto) Baso % (Auto) Neut # (Auto) Lymph # (Auto) [place] # (Auto) Eos # (Auto) Baso # (Auto) PT INR D-Dimer Sodium Potassium Chloride Carbon Dioxide BUN Creatinine Estimated GFR BUN/Creatinine Ratio Glucose Calcium Magnesium 1.8 Total Bilirubin AST ALT Alkaline Phosphatase Troponin I NT-Pro-B Natriuret Pep Total Protein Albumin Globulin Albumin/Globulin Ratio Lipase Nasal Screen MRSA (PCR) Positive for mrsa H SARS-CoV-2 (PCR) Negative 12/02/20 12/02/20 12/02/20 20:54 20:54 20:54 WBC RBC Hgb Hct MCV MCH MCHC RDW Plt Count Neut % (Auto) Lymph % (Auto) [place] % (Auto) Eos % (Auto) Baso % (Auto) Neut # (Auto) Lymph # (Auto) [place] # (Auto) Eos # (Auto) Baso # (Auto) PT 12.6 INR 1.1 D-Dimer Sodium 136 L Potassium 3.3 L Chloride 103 Carbon Dioxide 27 BUN 23 H Creatinine 1.82 H Estimated GFR 39.2 L BUN/Creatinine Ratio 12.6 Glucose 168 H Calcium 9.1 Magnesium Total Bilirubin 1.7 H AST 47 ALT 23 Alkaline Phosphatase 59 Troponin I NT-Pro-B Natriuret Pep 58 Total Protein 6.5 Albumin 3.6 Globulin 2.9 Albumin/Globulin Ratio 1.2 Lipase Nasal Screen MRSA (PCR) SARS-CoV-2 (PCR) Assessment & Plan Assessment & Plan narrative: Patient is Logan Anguiano a 55-year-old male who was referred to the ED after having been found to have severe hypotension 70/50 at an outpatient clinic earlier in the day. Patient had been positive for COVID pneumonia and was hospitalized in October 2020 leaving Against Medical Advice while still on 6 L of oxygen. Patient admitted for acute dehydration resulting in severe hypotension and SHAISTA. 1. Acute dehydration resulting in severe hypotension, Sepsis, and SHAISTA, acute, in the setting of chronic essential hypertension, present on admission -initial vitals BP 109/76, tachycardic HR 127, R 17, O2 saturation 96% on room air. No elevated WBC, H&H are stable, platelets 129., sodium 135, BUN 24, creatinine 2.63, last creatinine 0.82, glucose 140, GFR 25.6, last known GFR >60. D-dimer 514, initial troponin WNL, lipase 416, chest x-ray demonstrated no acute cardiopulmonary processes. SOFA: 5 -patient rehydrated in ED per sepsis protocol -NS at 100 cc/HR for rehydration -repeat CBC, CMP, Mag in a.m. -daily a.m. ortho stats -hold patient's losartan 2. GERD, chronic, present on admission -continue patient's omeprazole 3. History of alcohol abuse disorder, chronic, present on admission -patient has not demonstrated any signs or symptoms of alcohol withdrawal at this time but does have a recurrent history of hospitalizations for withdrawal. -patient placed on CIWA protocol Code status:DNR-verbalized by the patient upon admit Surrogate decision maker: Daniela Michelle Spouse COVID PCR: Negative Last COVID infection October 2020 COVID vaccination: unknown DVT/VTE prophylaxis: Lovenox 30 and SCDs Disposition: Patient admitted for observation estimated length of stay less than 2 midnights I have utilized all available immediate resources to obtain, update, or review the patient's current medications. I confirmed that the patient's advanced care plan is present, Code status is documented and/or surrogate decision maker is listed in the patient's medical record. Time Spent With Patient Critical Care time: I spent a total of [] minutes of critical care time on this patient's care today; this time is exclusive of procedural time. Scores GCS Jess coma scale eye opening: Spontaneous Jess coma scale verbal response: Orientated Jess coma scale motor response: Obey commands Redford coma scale total score: 15 SOFA PaO2/FIO2: >=400 mmHg Platelets: < 150 Bilirubin: 2.0-5.9 mg/dL Hypotension: MAP >= 70 mmHg Jess Coma Scale: 15 Renal: Creatinine 2.0-3.4 mg/dL SOFA Score: 5 Wells' Criteria for PE Clinical signs and symptoms of DVT: No PE is #1 Dx or equally likely: No Heart rate > 100: Yes Immobilization at least 3 days or surg in previous 4 weeks: No History of PE or DVT: No Hemoptysis: No Malignancy w/Treatment within 6 months or palliative: No Wells' PE Score total: 1.5
[2020-12-03] MEDS: POTASSIUM CHLORIDE IN WATER 10 MEQ/100 ML PIGGYBACK 100 MEQ IV ×4 (00:21→04:18)
[2020-12-03 00:40] LABS: Amylase 114 U/L (30-110)
[2020-12-03] MEDS: SODIUM CHLORIDE 0.9% 1,000 ML 100 ML IV (00:52)
[2020-12-03 01:00] VITALS: O2SAT 96
[2020-12-03 04:24] VITALS: BP 104/63; PULSE 87; RESP 22; TEMP 36.7; O2SAT 97
[2020-12-03 05:00] VITALS: O2SAT 96
[2020-12-03 05:20] LABS: Add Manual Diff / Slide Review NO; Basophils Absolute Auto 0 /uL (0-100); Basophils Percent Auto 0.7 % (0-2); Eosinophils Absolute Auto 400 /uL (0-450); Eosinophils Percent Auto 7.3 % (2-4); Hematocrit 38.8 % (41-53); Hemoglobin 13.2 g/dL (13.5-17.5); Lymphocytes Absolute Auto 1700 /uL (1100-4500); Lymphocytes Percent Auto 30.6 % (25-40); Mean Corpuscular HGB Conc 34.1 % (30-36); Mean Corpuscular Hemoglobin 33.1 PG (26-34); Mean Corpuscular Volume 97.1 fL (80-100); Monocytes Absolute Auto 500 /uL (0-900); Monocytes Percent Auto 8.7 % (3-14); Neutrophils Absolute Auto 2900 /uL (1500-7000); Neutrophils Percent Auto 52.7 % (50-75); Platelet Count 101 X10^3/uL (150-400); Red Cell Distribution Width 15.4 % (11.6-14.8); White Blood Cell Count 5.6 X10^3/uL (4.5-11.0)
[2020-12-03 05:44] LABS: Hemoglobin A1C% w Est Avg Glu 7.6 % (4.0-6.0)
[2020-12-03] MEDS: PANTOPRAZOLE DR 20 MG TABLET PO (06:04)
[2020-12-03 06:15] LABS: Alanine Aminotransferase 25 IU/L (<50); Albumin 3.6 g/dL (3.5-5.0); Albumin Globulin Ratio 1.2 (1.0-2.8); Alkaline Phosphatase 62 U/L (38-126); Aspartate Aminotransferase 50 IU/L (17-59); BUN Creatinine Ratio 16.7 (6-22); Bilirubin Total 1.8 mg/dL (0.2-1.3); Blood Urea Nitrogen 23 mg/dL (9-20); Calcium 9.2 mg/dL (8.4-10.2); Carbon Dioxide 29 mmol/L (22-32); Chloride 104 mmol/L (98-107); Estimated Glomerular Filt Rate 53.9 mL/min (>60); Globulin 3.1 g/dL (1.7-4.1); Glucose 99 mg/dL (70-100); HEMOLYSIS < 15 (0-50); Magnesium 1.9 mg/dL (1.6-2.3); Potassium 4.1 mmol/L (3.4-5.1); Sodium 138 mmol/L (137-145); Total Protein 6.7 g/dL (6.3-8.2)
[2020-12-03 06:21] LABS: Procalcitonin 0.12 ng/mL (<0.5)
[2020-12-03 07:03] LABS: Triglycerides 117 mg/dL (35-150)
[2020-12-03] MEDS: SODIUM CHLORIDE 0.9% 1,000 ML 1000 ML IV (07:46)
[2020-12-03 07:59] VITALS: BP 110/70; PULSE 90; RESP 23; TEMP 36.4; O2SAT 96
[2020-12-03 08:00] VITALS: O2SAT 96
--- NOTE | 2020-12-03 09:59 | PC.NURSE ---
Addendum entered by Rom Medel R.N. 12/03/20 10:27: Pt declined w/c and ambulated to exit. Escorted by PROCESSING REP. Pt had all belongings with him at time of dc. Original Note: Pt to dc home per order. Provided dc packet/educational material and gave verbal education. Reviewed home med regimen and instructed to stop taking losartan hctz per provider instruction. Pt states he makes his own f/u appt by calling in to clinic and making same day appt with a provider. He understands that he needs a f/u appt in 1-2 weeks as written by the hospitalist. Removed PIV with cath tip intact. Removed vehicle monitor technician. Pt is calling a family member to set up a ride.
--- NOTE | 2020-12-03 10:02 | PM.DS.1 ---
History of Present Illness History of Present Illness Chief complaint: hypotensive Narrative: Per Karina Mckeon: Logan Anguiano is a 55-year-old gentleman whom presented to the Outpatient Clinic and was found to be hypotensive and was transferred to the ED for further evaluation.? He has a history of alcohol use disorder with multiple ER visits to [facility] for the same.? He was diagnosed with COVID-19 at the end of September and 4 days after diagnosis was admitted to [facility] for acute hypoxic respiratory failure.? Did receive a full course of remdesivir as well as dexamethasone and eventually left Against Medical Advice on 6 L of oxygen.? He had at least 3 additional visits in the interval for alcohol related complaints.? Today, he reports that he is having trouble swallowing, coughing, complains of left-sided chest pain that is been there for 5-7 days feels like he got ?punched in the chest?.? States that the swallowing issue is an intermittent problem and has been going on for number of years.? He continues to complain of exertional dyspnea and fatigue since his discharge home from the hospital.? He tells me that he has not had any drug or alcohol use since his hospital discharge.? Complains of diffuse abdominal pain but also notes he has not had a bowel movement for the last 4-5 days.? Over the last week he is concerned that he is having worsening exertional dyspnea.? He stated that he had been increasing activities since his hospital discharge in was back to the point where he could at least ride his bike on a flat surface and over the last week has not been able to do that. Describes no fevers, no orthopnea, no lower extremity edema.? No headaches and no jaundice.? No recent vomiting. Upon admit patient's vitals are stable temp 97.6?, BP 121/80, HR 85, R 20, O2 saturation 96% on room air.? Patient has no elevated WBC, H&H are stable, platelets 129., sodium 135, BUN 24, SHAISTA with creatinine 2.63, last creatinine 0.82, glucose 140, GFR 25.6, last known GFR >60.? D-dimer 514, initial troponin WNL, lipase 416, chest x-ray demonstrated no acute cardiopulmonary processes.? I personally reviewed EKG normal sinus rhythm with a ventricular rate of [address] or T-wave changes.? Patient admitted for acute dehydration resulting in severe hypotension and SHAISTA. Discharge Providers Provider Date of admission: 12/02/20 19:10 Discharge Date: 12/03/20 Consults: 12/02/20 19:28 Consult to Dietitian, Adult Routine Comment: Reason For Exam: Hx of ETOH abuse 12/02/20 21:38 Consult to Dietitian, Adult Routine Comment: Reason For Exam: weight loss / diabetes Discharge provider: Pineda Burks MD Summary Hospital Course Discharge Diagnosis: 1. Acute dehydration, hypotension, SHAISTA 2. Hypertension 3. GERD 4. History of EtOH abuse Hospital Course: Mr. Anguiano presented with dizziness and an outpatient MD office visit showed his blood pressure in the 70s. He had been having diarrhea and vomiting a few days earlier and had continued taking his losartan-hctz. He was found to have SHAISTA with creatinine of 2.63. His medications were held and he was given IV fluids. His creatinine improved to 1.38 on discharge. He was encouraged to continue to hold his blood pressure medications until following up with his PCP. His blood pressure was normal, and he was discharged home. Exam Vital Signs (past 8 hours): Oxygen Delivery Method Room Air Oxygen Flow Rate 0 Narrative Exam Narrative: GEN: no acute distress HEENT: moist mucous membranes CV: regular rate and rhythm PULM: clear bilaterally Objective Labs Result Diagrams: 12/03/20 04:18 12/03/20 04:18 [facility] Medical History Alcohol use disorder Arthritis of knee, left COVID-19 HTN (hypertension) Type 2 diabetes mellitus Surgical History H/O arthroscopy Family History Father Hypertension Brother Cancer Social History household members: family and children Smoking Status: Current every day smoker alcohol intake: former substance use type: marijuana Discharge Plan Discharge Plan Patient Disposition: Home Provider Discharge Comment: Mr. Anguiano came in to the hospital with low blood pressure. He had some kidney injury initially that improved with IV fluids. His blood pressure improved with IV fluids. He felt better and was able to be discharged home. He should hold off on taking his blood pressure medication losartan-hydrochlorothiazide until seeing his primary doctor. He should follow up with his PCP in 1-2 weeks. Discharge orders & Medications Prescriptions: Continued metformin 500 mg tablet 500 mg PO QAM RF: 0 ondansetron 4 mg tablet,disintegrating 4 mg PO Q8H PRN (Reason: nausea and vomiting) Qty: 20 RF: 0 Discontinued losartan-hydrochlorothiazide 100-12.5 mg tablet 1 tab PO QAM RF: 0 Diet/Activity/Treatments Diet: Low-sodium Visit Report/Discharge Packet Instructions: Acute Kidney Injury, DI for Diabetes Type 2 Discharge Data Attending Provider: Pineda Burks MIPS - DC The patient has current or prior documentation of left ventricular ejection fraction (LVEF) less than 40%, or moderate or severely depressed left ventricular systolic function.: No
--- NOTE | 2020-12-03 10:47 | CM.DANOTE ---
DCP: Case received, EMR reviewed and met with patient. Introduced self and role. Was able to obtain information regarding patient's baseline activity level prior to hospitalization, as well as his current living situation. DCP assessment completed with information currently available. Patient is a 55 year old male who admitted yesterday evening to the care of the hospitalist team. PCP: [facility] (sees different providers). Payer: confirmed: Medicaid/[facility]. Patient came to the hospital via ambulance due to increased weakness. Patient was diagnosed with SHAISTA/hypotension. Patient does have history of alcohol abuse, but has not recently been drinking since his last admission. Met with patient in his room. He is alert and oriented, pleasant. Confirmed that he resides in [place] with his 18 year old daughter and his . Confirmed that he is no longer driving, and uses no DME supplies at his baseline. Did ask him if he was currently using alcohol, and he stated, he is no longer drinking. P: Patient has discharge orders to go home today. Shanna Zapata RN/Director Retail Brand Development Discharge Planning/Care Management Advanced directive, confirm from FAMILY Start: 12/02/20 21:39 Freq: Q24H Status: Discharge Protocol: Document 12/02/20 23:00 MW (Rec: 12/03/20 03:53 MW [id number]) Advance Directive, confirm on record Time 23:00 Person contacted pt Copy received No CM Discharge Assessment Start: 12/03/20 10:45 Freq: Status: Active Protocol: Document 12/03/20 10:45 (Rec: 12/03/20 10:47 [id number]) Discharge Planning Assessment Assigned E D Tech Shanna Zapata RN/Director Retail Brand Development Advance Directives? Yes Advance Directives on File No History Provided By Patient,Medical Record Prior Living Arrangements House Household Members family,children Type of transporation used prior to Relies on Others admit Independent with ADL's Yes Is patient alert and oriented? Yes Caregiver for Another No Barriers to Discharge No Discharge Plan Home Transportation Arrangement Family member Referrals Initiated None needed Whiteboard Updated in Patient Room with Yes name and ext. # of E D Tech Review Status In Process Next Review Type Continued Stay Review
== END 2020-12-03 10:27 | disposition home or self-care (01) ==
LOC: ED 18:08 → AC 19:11 → ICU 12-03 07:46
PROVIDERS: Nurse Practitioner Family; Admitting Provider Internal Medicine; Emergency Provider Emergency Medicine; Referring Provider Emergency Medicine; Visit Provider Internal Medicine
DX: E86.0 Dehydration (principal); I95.9 Hypotension, unspecified; N17.9 Acute kidney failure, unspecified; K21.9 Gastro-esophageal reflux disease without esophagitis; F10.21 Alcohol dependence, in remission; E11.9 Type 2 diabetes mellitus without complications; F17.200 Nicotine dependence, unspecified, uncomplicated; Z66 Do not resuscitate; Z20.822 Contact with and (suspected) exposure to COVID-19; Z79.84 Long term (current) use of oral hypoglycemic drugs
CPT/HCPCS: 36415; 71045; 80053; 82150; 83036; 83690; 83735; 83880; 84145; 84478; 84484; 85025; 85379; 85610; 87635; 87797; 93005; 93010; 96365; 96366; 96375; 99284; C9803; G0378; J1885

== ENCOUNTER → 2021-01-27 16:43 | Outpatient (CLI) | payer MEDICAID, OTHER, SELFPAY ==
[2020-12-02 21:10] VITALS: BMI 26.7
--- NOTE | 2021-01-27 | DI.RAD.S_ITS ---
PROCEDURE: XR PELVIS 1-2V INDICATIONS: PAIN TECHNIQUE: Single view(s) of the pelvis acquired. COMPARISON: None. FINDINGS: Bones: No fractures or dislocations. No suspicious bony lesions. Mild bilateral hip joint degeneration. Partially visualized lateral curvature of this lower lumbar spine. Soft tissues: Visualized bowel gas pattern is normal. No suspicious soft tissue calcifications. IMPRESSION: Mild bilateral hip joint degeneration Dictated by: Rom Catalan M.D. on 01/28/2021 at 13:17 Approved by: Rom Catalan M.D. on 01/28/2021 at 13:18
--- NOTE | 2021-01-27 | DI.RAD.S_ITS ---
PROCEDURE: XR KNEE RT 1TO2V INDICATIONS: PAIN TECHNIQUE: 2 views of the knee were acquired. COMPARISON: None. FINDINGS: Bones: No fractures or dislocations. No suspicious bony lesions. Scattered degenerative subchondral sclerosis and spurring. Moderate narrowing of the lateral joint space. Soft tissues: No joint effusion. No suspicious soft tissue calcifications. IMPRESSION: Moderate knee joint degeneration. Dictated by: Rom Catalan M.D. on 01/28/2021 at 15:56 Approved by: Rom Catalan M.D. on 01/28/2021 at 15:57
== END ==
PROVIDERS: Referring Provider Physician Assistant; Visit Provider Physician Assistant
DX: M16.0 Bilateral primary osteoarthritis of hip (principal); M17.11 Unilateral primary osteoarthritis, right knee; M25.561 Pain in right knee; M25.551 Pain in right hip; M25.552 Pain in left hip
CPT/HCPCS: 72170; 73560

== ENCOUNTER 2021-10-28 18:11 | Emergency (ER) | payer MEDICAID, OTHER, SELFPAY ==
[2020-12-02 21:10] VITALS: BMI 26.7
[2021-10-28 18:36] VITALS: BP 134/79; PULSE 106; RESP 20; TEMP 36.2; O2SAT 98; BMI 30.2
--- NOTE | 2021-10-28 18:44 | DI.RAD.S_ITS ---
PROCEDURE: XR ANKLE RT MIN 3V INDICATIONS: pain TECHNIQUE: 3 views of the ankle were acquired. COMPARISON: None. FINDINGS: Bones: Uhuv-zy-obhjgcyz joint space narrowing and osteophytosis of the tibiotalar joint. Subtalar joint space maintained. Talonavicular joint space maintained. No fractures or dislocations. Ankle mortise is normally aligned. No suspicious bony lesions. Soft tissues: No tibiotalar joint effusion. Achilles tendon appears normal. IMPRESSION: No acute finding. 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 Dictated by: Damir Lei M.D. on 10/28/2021 at 19:08 Approved by: Damir Lei M.D. on 10/28/2021 at 19:09
[2021-10-28 21:35] VITALS: BP 152/86; PULSE 108; RESP 17; O2SAT 97
--- NOTE | 2021-10-28 21:36 | ED.LOWEXIN ---
HPI - Extremity Injury (Lower) General Chief Complaint: Extremity Injury, Lower Stated Complaint: Rt ankle/tendon pain Time Seen by Provider: 10/28/21 21:36 History of Present Illness HPI Narrative: This 56-year-old man comes to the ER. He has a history of acute kidney injury hypotension type 2 diabetes, alcohol use disorder hypertension. He says he has had right foot and ankle pain quite severely for the past week. He was doing a lot of heavy activity about a week ago and it hurt a little bit of the time but really not very badly. Over the past week it has gradually gotten worse and worse to the point where now he can barely move it and barely put weight on it without extreme pain. He has not had fever. He has no symptoms above the knee or throughout the rest of his body. Specifically he does not have fever or chills. Related Data Home Medications Medication Instructions Recorded Confirmed metformin 500 mg tablet 500 mg PO QAM 12/03/20 12/03/20 Previous Rx's Medication Instructions Recorded ondansetron 4 mg disintegrating 4 mg PO Q8H PRN nausea and 10/07/20 tablet vomiting #20 tabs indomethacin 25 mg capsule 25 mg PO BID #10 caps 10/28/21 Allergies Allergy/AdvReac Type Severity Reaction Status Date / Time lisinopril [LISINOPRIL] Allergy Unknown Verified 10/28/21 18:44 Review of Systems Review of Systems Narrative: Complete review of systems is negative other than as noted above. Patient History Medical History Alcohol use disorder Arthritis of knee, left COVID-19 HTN (hypertension) Type 2 diabetes mellitus Surgical History H/O arthroscopy Family History Father Hypertension Brother Cancer Social History household members: family and children Smoking Status: Current every day smoker alcohol intake: former substance use type: marijuana Smoking Status: Current every day smoker tobacco type: cigarettes alcohol intake frequency: 3 or more drinks per day Alcohol type: beer Substance Use Type: marijuana Exam Narrative Exam Narrative: GENERAL: Alert, cooperative and in no distress. HEAD: Atraumatic. Normocephalic. EYES: Sclera are clear without icterus. Extraocular movements are full. ENT: No rhinorrhea NECK: No visible abnormality RESPIRATORY: No respiratory distress GASTROINTESTINAL: Nondistended EXTREMITIES: Right foot and ankle are normal in appearance. He has a normal dorsalis pedis pulse. There is no swelling of the foot or ankle. He has tenderness diffusely at both malleoli, the calcaneus, the Achilles tendon the sole of the foot the dorsum of the foot and the toes and the calf. The Achilles tendon seems to be intact. There is no warmth to palpation. The knee and the hip on the right side are unaffected with full range of motion. NEURO: Nonfocal, normal speech SKIN: No rash or erythema of visible areas PSYCH: Normally oriented. Normal range of affect. Appropriate behavior Initial Vital Signs Initial Vital Signs: Vital Signs Temperature 97.2 F L 10/28/21 18:36 Pulse Rate 106 H 10/28/21 18:36 Respiratory Rate 20 10/28/21 18:36 Blood Pressure 134/79 10/28/21 18:36 Pulse Oximetry 98 10/28/21 18:36 Oxygen Delivery Method 10/28/21 18:36 Course Orders Ordered: ED Orders 10/28/21 18:44 XR ankle RT min 3V Stat Acetaminophen (Acetaminophen 325 Mg Tablet) 975 mg PO NOW ONE Stop: 10/28/21 21:50 Indomethacin (Indomethacin 25 Mg Capsule) 25 mg PO NOW ONE Stop: 10/28/21 21:50 Vital Signs Vital signs: Vital Signs - 8 hr 10/28/21 18:36 10/28/21 21:35 Temperature 97.2 F L Pulse Rate 106 H 108 H Respiratory Rate 20 17 Blood Pressure 134/79 152/86 H Pulse Oximetry 98 97 Oxygen Delivery Method Room Air Room Air MDM - Extremity Injury (Lower) Imaging Data Extremity x-ray #1: Radiologist's Impression: IMPRESSION:? No acute finding.? 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 ? Dictated by: Damir Lei M.D. on 10/28/2021 at 19:08 ? ? Approved by: Damir Lei M.D. on 10/28/2021 at 19:09 ? MDM Narrative Medical decision making narrative: This well-appearing gentleman with tachycardia and hypertension is experiencing extreme pain in his right foot and ankle. Physical examination is normal other than the pain. It is not red or hot or swollen. He has no history of gout and without redness or swelling I am suspicious that gout is not likely. There is no fracture on the x-ray. I do not suspect a tendon rupture in the Achilles. I think analgesics and immobilization and close outpatient follow-up is appropriate. He says the full strength ibuprofen has not been helpful so I will switch him to indomethacin for the short term. Discharge Plan Departure Patient Disposition: Home Clinical Impression: Pain in right ankle and joints of right foot Activity Restrictions/Additional Instructions: I am sorry to your foot and ankle are hurting so badly. There is no fracture. I do not suspect infection. I think you may have and inflammation from the overactivity you did last weekend. Discontinue taking ibuprofen and start taking indomethacin. Take this twice daily. Also take 1000 mg Tylenol every 6 hours. Keep the immobilizer boot on and use the crutches as needed. Ice packs might be helpful as well but do not use them for more than 30 minutes at a time. Follow-up right away for redness or fever. Otherwise, follow up at the clinic in 4 5 days for re-evaluation. Prescriptions: New indomethacin 25 mg capsule 25 mg PO BID Qty: 10 0RF Rx Instructions: administer with food or milk No Action metformin 500 mg tablet 500 mg PO QAM Label Comments: TAKE 1 TABLET BY MOUTH EVERY DAY WITH MEAL ondansetron 4 mg tablet,disintegrating 4 mg PO Q8H PRN (Reason: nausea and vomiting) Qty: 20 0RF
[2021-10-28] MEDS: ACETAMINOPHEN 325 MG TABLET 975 MG PO (21:52)
[2021-10-28] MEDS: INDOMETHACIN 25 MG CAPSULE PO (21:53)
[2021-10-28 22:09] VITALS: BP 153/98; PULSE 92; RESP 16; O2SAT 98
== END 2021-10-28 22:09 | disposition home or self-care (01) ==
PROVIDERS: Emergency Provider Family Medicine Addiction Medicine
DX: M25.571 Pain in right ankle and joints of right foot (principal); R00.0 Tachycardia, unspecified; I10 Essential (primary) hypertension
CPT/HCPCS: 73610; 99283; 99284

== ENCOUNTER 2023-04-12 09:44 | Emergency (ER) | payer MEDICAID, OTHER, SELFPAY ==
[2020-12-02 21:10] VITALS: BMI 26.7
[2023-04-12] VITALS (9 sets, daily range): BP systolic 162–188; BP diastolic 81–101; PULSE 69–106; RESP 11–36; TEMP 36.6; O2SAT 97–100; BMI 25.8
--- NOTE | 2023-04-12 10:12 | ED_ITS ---
HPI - General Adult General Chief complaint: Abdominal Pain Stated complaint: N/V Time Seen by Provider: 04/12/23 10:03 Source: patient and EMS Mode of arrival: EMS Limitations: no limitations History of Present Illness HPI narrative: Patient is a 58-year-old male. Coming from the methadone clinic where he received a dose of Suboxone this morning. Does use fentanyl. States he is constipation because of the fentanyl. Is here because of generalized stomach discomfort. It is difficult for him to describe it much more than that. He states it feels like it is ?upset? is also having nausea. No urinary symptoms. Symptoms been going on for the past week and worsening during this time. Can not remember the last time he had a bowel movement. No prior abdominal surgeries. Related Data Home Medications Medication Instructions Recorded Confirmed metformin 500 mg tablet 500 mg PO QAM 12/03/20 12/03/20 Previous Rx's Medication Instructions Recorded ondansetron 4 mg disintegrating 4 mg PO Q8H PRN nausea and 10/07/20 tablet vomiting #20 tabs indomethacin 25 mg capsule 25 mg PO BID #10 caps 10/28/21 Allergies Allergy/AdvReac Type Severity Reaction Status Date / Time lisinopril [LISINOPRIL] Allergy Unknown Verified 10/28/21 18:44 Review of Systems Review of Systems ROS Unobtainable: All systems reviewed & are unremarkable except as noted in HPI and below Cardiovascular Cardiovascular: Reports system reviewed and no additional complaints, except as documented Respiratory Respiratory: Reports system reviewed and no additional complaints, except as documented Gastrointestinal Gastrointestinal: Reports system reviewed and no additional complaints, except as documented Genitourinary Genitourinary: Reports system reviewed and no additional complaints, except as documented Integumentary/Breasts Skin/Breast: Reports system reviewed and no additional complaints, except as documented Patient History Medical History Alcohol use disorder Type 2 diabetes mellitus COVID-19 Arthritis of knee, left HTN (hypertension) Surgical History H/O arthroscopy Family History Father Hypertension Brother Cancer Social History household members: family and children Smoking Status: Current every day smoker alcohol intake: former substance use type: marijuana Smoking Status: Current every day smoker tobacco type: cigarettes alcohol intake frequency: 3 or more drinks per day Alcohol type: beer Substance Use Type: marijuana Exam Initial Vital Signs Initial Vital Signs: Vital Signs Temperature 97.8 F 04/12/23 09:48 Pulse Rate 106 H 04/12/23 09:48 Respiratory Rate 20 04/12/23 09:48 Blood Pressure 171/90 H 04/12/23 09:48 Pulse Oximetry 97 04/12/23 09:48 Oxygen Delivery Method Room Air 04/12/23 09:48 HENMT Head: normal to inspection and normocephalic Resp Effort & Inspection: normal respiratory effort Auscultation: clear to auscultation bilaterally Cardio Rate: regular rate Rhythm: regular rhythm GI Inspection: normal to inspection and non-distended Palpation: No guarding, No rigid and tender Skin General: no rashes or lesions noted Neuro General: patient alert, patient awake and moves all extremities Extrem General: capillary refill normal Course Orders Ordered: ED Orders 04/12/23 10:12 CT abdomen pelvis w con Stat 04/12/23 10:20 Complete Blood Count AUTO DIFF Stat Comprehensive Metabolic Panel Stat ETOH [Ethanol (ETOH)] Stat Lipase Stat Discontinued Medications Sodium Chloride (Normal Saline 0.9%) 1,000 mls @ 1,000 mls/hr IV BOLUS ONE Stop: 04/12/23 11:10 Last Admin: 04/12/23 10:26 Dose: 1,000 mls/hr Documented By: Ondansetron HCl (Ondansetron 4 Mg/2 Ml Inj) 4 mg IV NOW ONE Stop: 04/12/23 10:12 Last Admin: 04/12/23 10:25 Dose: 4 mg Documented By: Vital Signs Vital signs: Vital Signs - 8 hr 04/12/23 09:48 04/12/23 09:48 04/12/23 09:49 Temperature 97.8 F Pulse Rate 106 H 104 H Respiratory Rate 20 36 H Blood Pressure 171/90 H 171/90 H Pulse Oximetry 97 100 Oxygen Delivery Method Room Air 04/12/23 10:00 04/12/23 10:00 04/12/23 10:30 Temperature Pulse Rate 72 72 Respiratory Rate 11 L 15 Blood Pressure 162/81 H Pulse Oximetry 98 100 Oxygen Delivery Method 04/12/23 10:30 04/12/23 11:00 04/12/23 11:02 Temperature Pulse Rate 88 Respiratory Rate 28 H Blood Pressure 178/101 H 188/93 H Pulse Oximetry 100 Oxygen Delivery Method 04/12/23 11:02 04/12/23 11:06 04/12/23 11:06 Temperature Pulse Rate 72 69 Respiratory Rate 22 25 H Blood Pressure 182/89 H Pulse Oximetry 100 99 Oxygen Delivery Method Medical Decision Making Lab Data Lab results reviewed: Yes I reviewed the patient's lab results. 04/12/23 10:20 04/12/23 10:20 Labs: Lab Results 04/12/23 Range/Units 10:20 WBC 9.7 (4.5-11.0) X10^3/uL RBC 5.14 (4.5-5.9) X10^6/uL Hgb 15.8 (13.5-17.5) g/dL Hct 44.5 (41-53) % MCV 86.6 (80-100) fL MCH 30.8 (26-34) PG MCHC 35.5 (30-36) % RDW 14.0 (11.6-14.8) % Plt Count 196 (150-400) X10^3/uL Neut % (Auto) 79.1 H (50-75) % Lymph % (Auto) 15.8 L (25-40) % Taney % (Auto) 3.9 (3-14) % Eos % (Auto) 0.4 L (2-4) % Baso % (Auto) 0.8 (0-2) % Neut # (Auto) 7700 H (1700-4553) /uL Lymph # (Auto) 1500 (6853-3738) /uL Taney # (Auto) 400 (0-900) /uL Eos # (Auto) 0 (0-450) /uL Baso # (Auto) 100 (0-100) /uL Sodium 136 L (137-145) mmol/L Potassium 3.3 L (3.4-5.1) mmol/L Chloride 98 (98-107) mmol/L Carbon Dioxide 31 (22-32) mmol/L BUN 17 (9-20) mg/dL Creatinine 0.83 (0.66-1.25) mg/dL Estimated GFR > 60 (>60) mL/min BUN/Creatinine Ratio 20.5 (6-22) Glucose 200 H (70-100) mg/dL Calcium 9.7 (8.4-10.2) mg/dL Total Bilirubin 1.8 H (0.2-1.3) mg/dL AST 23 (17-59) IU/L ALT 20 (<50) IU/L Alkaline Phosphatase 100 (38-126) U/L Total Protein 8.5 H (6.3-8.2) g/dL Albumin 4.5 (3.5-5.0) g/dL Globulin 4.0 (1.7-4.1) g/dL Albumin/Globulin Ratio 1.1 (1.0-2.8) Lipase 187 (23-300) U/L Ethyl Alcohol < 10 ( - 10) mg/dL Imaging Data CT scan - abdomen/pelvis: Radiologist's Impression: PROCEDURE: CT ABDOMEN PELVIS W CON INDICATIONS: Generalized abdominal pain TECHNIQUE: After the administration of intravenous contrast, axial sections acquired from the lung bases to the pubic symphysis. Coronal and sagittal reformats were performed. For radiation dose reduction, the following was used: automated exposure control, adjustment of mA and/or kV according to patient size. COMPARISON: [facility], CT, CT ABDOMEN PELVIS WITH CONTRAST, 07/10/2020, 14:37. FINDINGS: Image quality: Diagnostic. Lower Chest: There is a subpleural nodule within the right posterior medial lung base measuring 15 mm, new since the prior examination. ABDOMEN: Liver: Nodular hepatic contour. No focal mass. Gallbladder: No radiopaque gallstones or wall thickening. Biliary ducts: No biliary dilation. Pancreas: No ductal dilation. Spleen: Size is within normal limits. Adrenal Glands: No adrenal nodules. Kidneys and Ureters: No hydronephrosis. No solid mass. No complex renal cystic lesion which requires follow up. Stomach and Bowel: Normal colonic caliber, without significant wall thickening. Normal appendix. Peritoneum: No abnormal intraperitoneal fluid. No free air. Ventral Wall: No significant ventral hernia. Abdominal Nodes: No retroperitoneal or mesenteric adenopathy by size criteria. Vessels: Aorta and inferior vena cava are normal in size. Periesophageal varices at the lateral aspect of the gastroesophageal junction. PELVIS: Pelvic Organs: Unremarkable. Bladder: No bladder wall thickening, accounting for underdistention. Pelvic Nodes: No enlarged lymph nodes. Miscellaneous: No inguinal hernias are seen. Bones: No aggressive osseous abnormality. IMPRESSION: 1. New right lung base nodule. Initial further assessment with PET-CT examination is recommended. 2. Cirrhosis and portal hypertension. 3. Normal appendix. MDM Narrative Medical decision making narrative: CT scan is unremarkable. There is a new pulmonary nodule which I advised the patient about that he needed to follow-up with his primary doctor for further evaluation. Labs are unremarkable. No indication for admission to the hospital or surgical consultation. He was given return precautions. Discharge Plan Departure Patient Disposition: Home Clinical Impression: Abdominal pain, Pulmonary nodule Instructions: DI for Abdominal Pain-Adult Activity Restrictions/Additional Instructions: The CT scan today did show an incidental finding of a pulmonary nodule. It is important that you contact your primary care doctor for a follow-up to have this further evaluated. Continue all of your medications as directed. Prescriptions: No Action metformin 500 mg tablet 500 mg PO QAM Patient Comments: TAKE 1 TABLET BY MOUTH EVERY DAY WITH MEAL ondansetron 4 mg tablet,disintegrating 4 mg PO Q8H PRN (Reason: nausea and vomiting) Qty: 20 0RF indomethacin 25 mg capsule 25 mg PO BID Qty: 10 0RF Rx Instructions: administer with food or milk Stand Alone Forms: Patient Portal/API
[2023-04-12] MEDS: ONDANSETRON 4 MG/2 ML INJ IV (10:25)
[2023-04-12] MEDS: SODIUM CHLORIDE 0.9% 1,000 ML 1000 ML IV (10:26)
[2023-04-12 10:40] LABS: Add Manual Diff / Slide Review NO; Basophils Absolute Auto 100 /uL (0-100); Basophils Percent Auto 0.8 % (0-2); Eosinophils Absolute Auto 0 /uL (0-450); Eosinophils Percent Auto 0.4 % (2-4); Hematocrit 44.5 % (41-53); Hemoglobin 15.8 g/dL (13.5-17.5); Lymphocytes Absolute Auto 1500 /uL (1100-4500); Lymphocytes Percent Auto 15.8 % (25-40); Mean Corpuscular HGB Conc 35.5 % (30-36); Mean Corpuscular Hemoglobin 30.8 PG (26-34); Mean Corpuscular Volume 86.6 fL (80-100); Monocytes Absolute Auto 400 /uL (0-900); Monocytes Percent Auto 3.9 % (3-14); Neutrophils Absolute Auto 7700 /uL (1500-7000); Neutrophils Percent Auto 79.1 % (50-75); Platelet Count 196 X10^3/uL (150-400); Red Blood Cell Count 5.14 X10^6/uL (4.5-5.9); White Blood Cell Count 9.7 X10^3/uL (4.5-11.0)
[2023-04-12 10:50] LABS: Alanine Aminotransferase 20 IU/L (<50); Albumin 4.5 g/dL (3.5-5.0); Albumin Globulin Ratio 1.1 (1.0-2.8); Alkaline Phosphatase 100 U/L (38-126); Aspartate Aminotransferase 23 IU/L (17-59); BUN Creatinine Ratio 20.5 (6-22); Bilirubin Total 1.8 mg/dL (0.2-1.3); Blood Urea Nitrogen 17 mg/dL (9-20); Calcium 9.7 mg/dL (8.4-10.2); Carbon Dioxide 31 mmol/L (22-32); Chloride 98 mmol/L (98-107); Estimated Glomerular Filt Rate > 60 mL/min (>60); Ethanol (ETOH) < 10 mg/dL; Glucose 200 mg/dL (70-100); HEMOLYSIS < 15 (0-50); Lipase 187 U/L (23-300); Potassium 3.3 mmol/L (3.4-5.1); Sodium 136 mmol/L (137-145); Total Protein 8.5 g/dL (6.3-8.2)
== END 2023-04-12 12:24 | disposition home or self-care (01) ==
PROVIDERS: Emergency Provider Emergency Medicine
DX: R10.84 Generalized abdominal pain (principal); R91.1 Solitary pulmonary nodule
CPT/HCPCS: 36415; 74177; 80053; 80320; 83690; 85025; 96361; 96374; 99284; J2405

== ENCOUNTER 2023-07-12 07:07 | Emergency (ER) | payer MEDICAID, OTHER, SELFPAY ==
[2020-12-02 21:10] VITALS: BMI 26.7
[2023-07-12] VITALS (31 sets, daily range): BP systolic 111–178; BP diastolic 70–104; PULSE 113–142; RESP 17–29; O2SAT 96–100; BMI 28.2
--- NOTE | 2023-07-12 07:12 | DI.RAD.S_ITS ---
PROCEDURE: XR CHEST 1V INDICATIONS: overdose TECHNIQUE: One view of the chest was acquired. COMPARISON: , CT, CT ABDOMEN PELVIS W CON, 04/12/2023, 11:27. , CR, XR CHEST 1V, 12/02/2020, 15:46. , CR, XR CHEST 1V, 01/31/2020, 11:48. FINDINGS: Surgical changes and devices: None. Lungs and pleura: Lungs are clear. No pleural effusions or pneumothorax. Mediastinum: Mediastinal contours appear normal. Heart size is normal. Bones and chest wall: No suspicious bony lesions. Overlying soft tissues appear unremarkable. IMPRESSION: No acute cardiopulmonary abnormality is seen. Dictated by: Onur Schroeder M.D. on 07/12/2023 at 8:03 Approved by: Onur Schroeder M.D. on 07/12/2023 at 8:04
--- NOTE | 2023-07-12 07:13 | ED.OVERDOSE ---
HPI - Overdose General Chief Complaint: Toxicology Problem Stated Complaint: OD Time Seen by Provider: 07/12/23 07:11 Source: RN notes reviewed and old records reviewed Mode of arrival: EMS History of Present Illness HPI Narrative: 56-year-old with history of substance abuse, alcohol use disorder, diabetes type 2 who presents with overdose of suspected tranq.Patient told EMS that he took blues.Patient states that he was just wanting to go to sleep. He states he was not trying to harm himself. Patient received Narcan from family as well as [place] [employer]. EMS states he was never hypoxic but was tachycardic but unclear if he was apneic prior to their arrival. They state patient has been agitated but overall cooperative since consistent with similar past. Patient has had overdoses himself in the past. He states he feels very nauseated and uncomfortable. Denies any pain denies any chest pain or shortness of breath. Has not been vomiting. No other GI or urinary symptoms. Patient has not allergy to lisinopril. Does use tobacco daily, does drink alcohol uses marijuana as well as other substances. Related Data Home Medications Medication Instructions Recorded Confirmed metformin 500 mg tablet 500 mg PO QAM 12/03/20 12/03/20 Previous Rx's Medication Instructions Recorded ondansetron 4 mg disintegrating 4 mg PO Q8H PRN nausea and 10/07/20 tablet vomiting #20 tabs indomethacin 25 mg capsule 25 mg PO BID #10 caps 10/28/21 Allergies Allergy/AdvReac Type Severity Reaction Status Date / Time lisinopril [LISINOPRIL] Allergy Unknown Verified 10/28/21 18:44 Review of Systems Review of Systems ROS Unobtainable: All systems reviewed & are unremarkable except as noted in HPI and below Patient History Medical History Alcohol use disorder Type 2 diabetes mellitus COVID-19 Arthritis of knee, left HTN (hypertension) Surgical History H/O arthroscopy Family History Father Hypertension Brother Cancer Social History household members: family and children Smoking Status: Current every day smoker alcohol intake: former substance use type: marijuana Smoking Status: Current every day smoker tobacco type: cigarettes alcohol intake frequency: 3 or more drinks per day Alcohol type: beer Substance Use Type: marijuana Exam Narrative Exam Narrative: GEN: Male, alert and oriented, clear speech. Patient appears to be in moderate distress. Patient appears uncomfortable moves around the bed frequently but does follow commands. HEENT: Atraumatic, pupils are equal round reactive to light, extraocular movements are intact, nares are clear, there is no conjunctival pallor. Throat is clear without any exudates, erythema, tonsillar enlargement or uvular deviation HEART: Regular rate and rhythm without murmur, clicks, rubs. Pulses are equal in upper and lower extremities LUNGS:Lungs clear to auscultation, no wheezes, rales, crackles, chest moves symmetrically ABD:bowel sounds normal, soft, non-tender, no guarding, rebound, rigidity, no masses noted, no hepatosplenomegaly :No CVA tenderness MSCL: Non-tender, no muscle atrophy, muscles strength 5/5 upper and lower extremities, full range of motion, patient able to sit up in the bed as well as lay down in rollover lay on his stomach. NEURO:CN 2-12 intact, sensation normal SKIN: No rash, erythema or other skin changes. Initial Vital Signs Initial Vital Signs: Vital Signs Pulse Rate 133 H 07/12/23 07:08 Respiratory Rate 25 H 07/12/23 07:08 Blood Pressure 178/86 H 07/12/23 07:08 Pulse Oximetry 100 07/12/23 07:08 Oxygen Delivery Method Room Air 07/12/23 07:08 Oxygen Flow Rate 99 07/12/23 07:08 Course Orders Ordered: ED Orders 07/12/23 07:11 Consult to [employer] - Wood Treating Inspector Urgent 07/12/23 07:12 XR chest 1V Stat Acetaminophen Stat Complete Blood Count AUTO DIFF Stat Comprehensive Metabolic Panel Stat Ethanol (ETOH) Stat Hepatic (Liver) Panel Stat Lactate (Lactic Acid) Stat MAG [Magnesium] Stat Prothrombin Time INR Stat Salicylate Stat Troponin & CK Cardiac Panel Stat 07/12/23 08:25 Urine Drug Screen, Rapid Stat 07/12/23 09:05 BMP [Basic Metabolic Panel] Stat Discontinued Medications Sodium Chloride (Normal Saline 0.9%) 1,000 mls @ 1,000 mls/hr IV BOLUS ONE Stop: 07/12/23 08:10 Last Infusion: 07/12/23 08:25 Dose: Infused Documented By: Admin: 07/12/23 07:21 Dose: 1,000 mls/hr Documented By: CANDIE Calcium Gluconate 4.65 meq/ (Sodium Chloride) 60 mls @ 180 mls/hr IV NOW ONE Stop: 07/12/23 08:17 Last Infusion: 07/12/23 08:48 Dose: Infused Documented By: Admin: 07/12/23 08:17 Dose: 180 mls/hr Documented By: RB Lorazepam (Lorazepam 2 Mg/Ml Inj) 0.5 mg IV NOW ONE Stop: 07/12/23 08:03 Last Admin: 07/12/23 08:16 Dose: 0.5 mg Documented By: EMILIANA Lorazepam (Lorazepam 2 Mg/Ml Inj) 0.5 mg IV NOW ONE Stop: 07/12/23 08:52 Last Admin: 07/12/23 08:55 Dose: 0.5 mg Documented By: EMILIANA Naloxone HCl (Naloxone 1 Mg/Ml Syringe) 0.2 mg IV PRN PRN PRN Reason: Opiate Reversal Ondansetron HCl (Ondansetron 4 Mg/2 Ml Inj) 4 mg IV NOW ONE Stop: 07/12/23 07:12 Last Admin: 07/12/23 07:21 Dose: 4 mg Documented By: CANDIE Potassium Chloride (Potassium Chloride 20 Meq Tab) 40 meq PO NOW ONE Stop: 07/12/23 07:59 Last Admin: 07/12/23 08:16 Dose: 40 meq Documented By: EMILIANA Vital Signs Vital signs: Vital Signs - 8 hr 07/12/23 08:00 07/12/23 08:00 07/12/23 08:05 Pulse Rate 127 H Respiratory Rate Blood Pressure 159/92 H 151/82 H Pulse Oximetry 100 07/12/23 08:05 07/12/23 08:10 07/12/23 08:10 Pulse Rate 135 H 126 H Respiratory Rate Blood Pressure 153/96 H Pulse Oximetry 97 100 07/12/23 08:16 07/12/23 08:16 07/12/23 08:20 Pulse Rate 127 H 125 H Respiratory Rate Blood Pressure 146/76 H Pulse Oximetry 100 100 07/12/23 08:20 07/12/23 08:25 07/12/23 08:25 Pulse Rate 116 H Respiratory Rate 23 Blood Pressure 149/78 H 150/74 H Pulse Oximetry 96 07/12/23 08:30 07/12/23 08:30 07/12/23 08:40 Pulse Rate 129 H Respiratory Rate Blood Pressure 164/99 H 149/70 H Pulse Oximetry 98 07/12/23 08:40 07/12/23 08:46 07/12/23 08:46 Pulse Rate 123 H 136 H Respiratory Rate 28 H 24 Blood Pressure 147/73 H Pulse Oximetry 97 100 07/12/23 08:51 07/12/23 08:51 07/12/23 08:56 Pulse Rate 134 H Respiratory Rate Blood Pressure 133/80 152/99 H Pulse Oximetry 98 07/12/23 08:56 07/12/23 09:00 07/12/23 09:02 Pulse Rate 133 H 135 H Respiratory Rate Blood Pressure 132/76 Pulse Oximetry 99 99 07/12/23 09:02 07/12/23 09:18 07/12/23 09:18 Pulse Rate 133 H 137 H Respiratory Rate 29 H Blood Pressure 132/71 Pulse Oximetry 98 99 07/12/23 09:30 07/12/23 09:31 07/12/23 09:31 Pulse Rate 140 H 139 H Respiratory Rate Blood Pressure 138/72 Pulse Oximetry 98 98 07/12/23 10:00 07/12/23 10:30 07/12/23 11:00 Pulse Rate 142 H 126 H 128 H Respiratory Rate 20 Blood Pressure 122/84 Pulse Oximetry 98 98 97 07/12/23 11:08 07/12/23 11:08 07/12/23 11:30 Pulse Rate Respiratory Rate Blood Pressure 122/84 Pulse Oximetry 98 97 MDM - Overdose Lab Data 07/12/23 07:12 07/12/23 09:05 Labs: Lab Results 07/12/23 07/12/23 07/12/23 Range/Units 07:12 08:25 09:05 WBC 11.5 H (4.5-11.0) X10^3/uL RBC 4.39 L (4.5-5.9) X10^6/uL Hgb 13.4 L (13.5-17.5) g/dL Hct 38.7 L (41-53) % MCV 88.2 (80-100) fL MCH 30.5 (26-34) PG MCHC 34.5 (30-36) % RDW 14.1 (11.6-14.8) % Plt Count 219 (150-400) X10^3/uL Neut % (Auto) 73.2 (50-75) % Lymph % (Auto) 19.6 L (25-40) % Schuyler % (Auto) 5.1 (3-14) % Eos % (Auto) 1.5 L (2-4) % Baso % (Auto) 0.6 (0-2) % Neut # (Auto) 8400 H (8556-9005) /uL Lymph # (Auto) 2300 (1968-9657) /uL Schuyler # (Auto) 600 (0-900) /uL Eos # (Auto) 200 (0-450) /uL Baso # (Auto) 100 (0-100) /uL PT 12.0 (9.4-12.5) SECONDS INR 1.0 (0.9-1.3) Sodium 141 140 (137-145) mmol/L Potassium 2.9 L 3.6 (3.4-5.1) mmol/L Chloride 110 H 107 (98-107) mmol/L Carbon Dioxide 25 26 (22-32) mmol/L BUN 17 17 (9-20) mg/dL Creatinine 0.70 0.80 (0.66-1.25) mg/dL Estimated GFR > 60 > 60 (>60) mL/min BUN/Creatinine Ratio 24.3 H 21.3 (6-22) Glucose 106 H 149 H (70-100) mg/dL Lactate 2.7 H 1.4 (0.7-2.1) mmol/L Calcium 7.6 L 9.0 (8.4-10.2) mg/dL Magnesium 1.9 (1.6-2.3) mg/dL Total Bilirubin 0.8 (0.2-1.3) mg/dL Conjugated Bilirubin 0.0 (0.0-0.3) md/dL Unconjugated Bilirubin 0.7 (0.0-1.1) mg/dL AST 26 (17-59) IU/L ALT 19 (<50) IU/L Alkaline Phosphatase 80 (38-126) U/L Total Creatine Kinase 139 (55-170) U/L Troponin I < 0.012 (0.01-0.034) ng/mL Total Protein 6.5 (6.3-8.2) g/dL Albumin 3.7 (3.5-5.0) g/dL Globulin 2.8 (1.7-4.1) g/dL Albumin/Globulin Ratio 1.3 (1.0-2.8) Salicylates < 1.0 (<20) mg/dL U Opiates 300ng/mL cut Negative (Negative) Ur Oxycodone Screen Negative (Negative) Urine Methadone Screen Positive H (Negative) Acetaminophen < 10 (10-30) ug/mL Ur Barbiturates Screen Negative (Negative) U Tricyclic Antidepress Negative (Negative) Ur Phencyclidine Scrn Negative (Negative) Ur Amphetamines Screen Negative (Negative) U Methamphetamines Scrn Negative (Negative) Ur MDMA Scrn (Ecstasy) Negative (Negative) U Benzodiazepines Scrn Negative (Negative) Urine Cocaine Screen Negative (Negative) U Marijuana (THC) Screen Negative (Negative) Urine pH Normal (Normal) Urine Specific [place] Normal (Normal) Ethyl Alcohol < 10 ( - 10) mg/dL Ur Creatinine Normal (Normal) Imaging Data Chest x-ray: Radiologist's Impression: [address] [address] XRay Report Signed Patient: Logan Anguiano MR#: [id number] : 1965 Acct:[id number] Age/Sex: 58 / M Date of Service: 07/12/23 Loc: ED Accession Number: [id number] Procedure: XR chest 1V Ordering Provider: Sharon Lora D.O. PROCEDURE: XR CHEST 1V INDICATIONS: overdose TECHNIQUE: One view of the chest was acquired. COMPARISON: [facility], CT, CT ABDOMEN PELVIS W CON, 04/12/2023, 11:27. [facility], CR, XR CHEST 1V, 12/02/2020, 15:46. [facility], CR, XR CHEST 1V, 01/31/2020, 11:48. FINDINGS: Surgical changes and devices: None. Lungs and pleura: Lungs are clear. No pleural effusions or pneumothorax. Mediastinum: Mediastinal contours appear normal. Heart size is normal. Bones and chest wall: No suspicious bony lesions. Overlying soft tissues appear unremarkable. IMPRESSION: No acute cardiopulmonary abnormality is seen. Dictated by: Onur Schroeder M.D. on 07/12/2023 at 8:03 Approved by: Onur Schroeder M.D. on 07/12/2023 at 8:04 [facility] Narrative Medical decision making narrative: 58-year-old male with known history of substance abuse with unintentional overdose. Patient arrives tachycardic but not hypoxic, alert, uncomfortable after receiving multiple doses of Narcan. Labs patient has a white count 11.5 hemoglobin of 13.4, platelets of 219. INR is 1, potassium is 2.9 with a chloride of 110 sodium of 141 glucose of 106 with otherwise normal renal function electrolytes lactate of 2.7 calcium 7.6 with negative LFTs negative troponin. Patient's alcohol is negative, Tylenol and salicylates are both negative. Magnesium level is 1.9 Chest x-ray shows no acute change. Patient received fluids, 4 mg of Zofran. Patient's potassium and calcium are both low these were replaced. Patient's repeat electrolytes appropriate with a potassium of 3 6 his lactate is 1.4 on repeat. Calcium is 9. Patient's labs have significantly improved, he is still uncomfortable did receive 2 doses of Ativan. Patient's mentation has continued improve over time. He is able to ambulate safely. Patient is felt safe for discharge as needed. Patient met with the [employer] is requesting detox we will look for a bed. Spoke with LIZETTE Hernández at [facility]. Patient has only had 2 doses Suboxone for initial induction does not have to continue but they are happy to see him tomorrow if he does not obtain a detox bed. Patient ambulated to the bathroom several times we discussed plan for detox bed. He appears to have eloped did not tell anyone but has left the department we did reach out to him by phone which he had with a when he arrived and took with him was picked up but hung up. Naloxone at Discharge Meets criteria for naloxone at discharge?: Yes Reason patient is not provided naloxone?: Other reason (patient eloped) Discharge Plan Departure Patient Disposition: Elopement Clinical Impression: Overdose, Hypokalemia Prescriptions: No Action metformin 500 mg tablet 500 mg PO QAM Patient Comments: TAKE 1 TABLET BY MOUTH EVERY DAY WITH MEAL ondansetron 4 mg tablet,disintegrating 4 mg PO Q8H PRN (Reason: nausea and vomiting) Qty: 20 0RF indomethacin 25 mg capsule 25 mg PO BID Qty: 10 0RF Rx Instructions: administer with food or milk
--- NOTE | 2023-07-12 07:20 | PC.NURSE ---
Family called ems. Pt smoked unknown white substance. Hx of fentanyl and tranq use. 2 doses of narcan given in field. Pt answers all questions and is alert. Pt yelling and grunting and states that cannot sit still. pt tachycardic HR 133
[2023-07-12] MEDS: ONDANSETRON 4 MG/2 ML INJ IV (07:21)
[2023-07-12] MEDS: SODIUM CHLORIDE 0.9% 1,000 ML 1000 ML IV (07:21)
[2023-07-12 07:23] LABS: Add Manual Diff / Slide Review NO; Basophils Absolute Auto 100 /uL (0-100); Basophils Percent Auto 0.6 % (0-2); Eosinophils Absolute Auto 200 /uL (0-450); Eosinophils Percent Auto 1.5 % (2-4); Hematocrit 38.7 % (41-53); Hemoglobin 13.4 g/dL (13.5-17.5); Lymphocytes Absolute Auto 2300 /uL (1100-4500); Lymphocytes Percent Auto 19.6 % (25-40); Mean Corpuscular HGB Conc 34.5 % (30-36); Mean Corpuscular Hemoglobin 30.5 PG (26-34); Mean Corpuscular Volume 88.2 fL (80-100); Monocytes Absolute Auto 600 /uL (0-900); Monocytes Percent Auto 5.1 % (3-14); Neutrophils Absolute Auto 8400 /uL (1500-7000); Neutrophils Percent Auto 73.2 % (50-75); Platelet Count 219 X10^3/uL (150-400); Red Blood Cell Count 4.39 X10^6/uL (4.5-5.9); Red Cell Distribution Width 14.1 % (11.6-14.8); White Blood Cell Count 11.5 X10^3/uL (4.5-11.0)
[2023-07-12 07:39] LABS: Acetaminophen < 10 ug/mL (10-30); Alanine Aminotransferase 19 IU/L (<50); Albumin 3.7 g/dL (3.5-5.0); Albumin Globulin Ratio 1.3 (1.0-2.8); Alkaline Phosphatase 80 U/L (38-126); Aspartate Aminotransferase 26 IU/L (17-59); BUN Creatinine Ratio 24.3 (6-22); Bilirubin Total 0.8 mg/dL (0.2-1.3); Bilirubin Unconjugated 0.7 mg/dL (0.0-1.1); Blood Urea Nitrogen 17 mg/dL (9-20); Calcium 7.6 mg/dL (8.4-10.2); Carbon Dioxide 25 mmol/L (22-32); Chloride 110 mmol/L (98-107); Creatine Kinase 139 U/L (55-170); Estimated Glomerular Filt Rate > 60 mL/min (>60); Ethanol (ETOH) < 10 mg/dL; Globulin 2.8 g/dL (1.7-4.1); Glucose 106 mg/dL (70-100); HEMOLYSIS < 15 (0-50); Lactate (Lactic Acid) 2.7 mmol/L (0.7-2.1); Potassium 2.9 mmol/L (3.4-5.1); Salicylate < 1.0 mg/dL (<20); Sodium 141 mmol/L (137-145); Total Protein 6.5 g/dL (6.3-8.2)
[2023-07-12 07:50] LABS: Troponin I < 0.012 ng/mL (0.01-0.034)
[2023-07-12] MEDS: LORazepam 2 MG/ML INJ 0.5 MG IV ×2 (08:16→08:55)
[2023-07-12] MEDS: POTASSIUM CHLORIDE 20 MEQ TAB 40 MEQ PO (08:16)
[2023-07-12] MEDS: CALCIUM GLUCONATE 4.65 MEQ in SODIUM CHLORIDE 0.9% 50 ML 180 MEQ IV (08:17)
[2023-07-12 08:26] LABS: Magnesium 1.9 mg/dL (1.6-2.3)
[2023-07-12 08:39] LABS: UR Morphine/Opiate cutoff 300 Negative (Negative); Ur Creatinine Normal (Normal); Ur Specific Gravity Normal (Normal); Urine Amphetamines Negative (Negative); Urine Barbiturates Negative (Negative); Urine Benzodiazepines Negative (Negative); Urine Cocaine Negative (Negative); Urine MDMA Negative (Negative); Urine Methadone Positive (Negative); Urine Methamphetamines Negative (Negative); Urine Oxycodone Negative (Negative); Urine Phencyclidine Negative (Negative); Urine Tetrahydrocannabinol Negative (Negative); Urine Tricyclic Antidepressant Negative (Negative); Urine pH Normal (Normal)
[2023-07-12 08:53] LABS: Reflexed Lactate in 2 Hours Y
[2023-07-12 09:29] LABS: BUN Creatinine Ratio 21.3 (6-22); Blood Urea Nitrogen 17 mg/dL (9-20); Carbon Dioxide 26 mmol/L (22-32); Chloride 107 mmol/L (98-107); Estimated Glomerular Filt Rate > 60 mL/min (>60); Glucose 149 mg/dL (70-100); HEMOLYSIS < 15 (0-50); Lactate 2HR (Lactic Acid Rflx) 1.4 mmol/L (0.7-2.1); Potassium 3.6 mmol/L (3.4-5.1); Sodium 140 mmol/L (137-145)
--- NOTE | 2023-07-12 12:31 | CM.SWNOTE ---
[facility] [place] Note: INSURANCE INSTRUCTOR - Regeneration Operator Assessment INSURANCE INSTRUCTOR - Regeneration Operator Assessment Time Spent with Patient Start date 07/12/23 Visit Start Time 11:23 End date 07/12/23 Visit End Time 11:45 Total time Care Management spent on 22 Minutes patient visit-in minutes Mental Health Screening Include Onset, Duration, Intensity Presenting Problem Patient presents to this ED after an accidental overdose via fentanyl, blues. Precipitating Event(s) Pt explains he started Medication Assisted Treatment (suboxone) at [facility] on , . Pt reports he missed a dose yesterday, 07/10, and he was offered to share blues with his cousins who stopped at this home last night. Pt reports this morning, a friend stopped by and offered him white fentanyl which he smoked. Pt explains his family members had administered narcan and was also administered by EMS. Patient Strengths Pt has started care at [facility] recently and recognized he needs support in detoxing. Pt works closely with Primary Care Provider at [facility]. Current Behavioral Health Provider(s) [facility] - Include Facility, Provider, Ph. # Counselor, Ynes (ph#). Psych. Hx Mental Health and Chemical Hx of polysubstance use Dependency Alcohol use disorder Diabetes Type 2 Family Hx of Behavioral Abuse Pt did not disclose. Psychiatric Hospitalizations (date(s)/ None reported. location) Psychosocial information & Support Pt is a 58yo male, resident of [facility], lives alone. 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 Pt is and has three adult children. 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 Legal Concerns Legal Matters - Outstanding Issues None reported. Mental Status Orientation (Person/Place/Time) A/Ox4 Stated Mood scared, tired Affect (Congruent with Mood?) Congruent with mood Thought Content - Specify/Describe Pt denies having any delusions Obsessions, Delusions, Hallucinations or A/V Hallucinations. Thought Processes (Himrjtx-Joasfnkk-Bzmk Tangential, disorganized. Qbuwqjhn-Dxvsmzyh-Kacknvhtid- Paicedckupuozo-Qtflrbs-Qmnnudbtkfin- Thought Blocking) Speech (Dzexqe-Vqkd-Nbkdadp-Rapid-Soft- Pressured, slurred. Loud-Pressured) Motor (Wfemur-Rstxelkyx-Pghv-Other) Excessive, pt reports he is experiencing involuntary muscle movements and believes it could be attributed to his substance use today. During this assessment, pt was pacing and attempting to stretch, pt reports having arthritis in his hips which also makes him need to get up every ten minutes. Insight (Wfxk-Plnj-Ymue/Limited) Fair/limited Judgement (Ciek-Madd-Lcmo/Limited) Fair/limited Impulse Control (Adequate-Impaired) Impaired/limited Memory (Awdiuwvvb-Mgowkv-Crkmbg, Intact Impaired-Intact) Concentration (Intact-Impaired) Intact Attention (Intact-Impaired) Intact Behavior (Appropriate-Inappropriate) Appropriate Additional Comment Pt is calm, cooperative during the time of this assessment. Risk Assessment Suicidal Ideation (Plan) No Homicidal Ideation (Plan) No Intervention Intervention INSURANCE INSTRUCTOR meets with patient in room , introduced self and role. INSURANCE INSTRUCTOR inquired about pt's presentation and discovered that pt missed one suboxone dose (started last , ) which may have attributed to him succumbing to pressure from cousins who visited his home with illicit substances. Pt states it was an accidental overdose as he usually does blues only but took a hit of the white stuff and didn't realize how potent it is. Pt denies any recent triggers or stressful events which could attribute to continued use other than the accessibility to substances due to his family and community who use substances daily. Pt explains he had to bury my only son in March, would not disclose reason of , but explained that his other children who are alive and live in [place] also use substances at times. INSURANCE INSTRUCTOR discussed pt's attempt at utilizing Medication Assisted Treatment. INSURANCE INSTRUCTOR discussed referral to detox at this time. Pt was enthusiastic about a referral to detox and discussed a preference to the detox center in [place]. Pt provided consent for this INSURANCE INSTRUCTOR to inquire about bed census and send a referral once medically cleared. AT this time, it is the opinion of this INSURANCE INSTRUCTOR that patient attend a detox program before returning home to community outpatient services at [facility]. INSURANCE INSTRUCTOR reviews the above with Dr. Lora, who indicates agreement. Plan RA Plan Once patient is medically clear, INSURANCE INSTRUCTOR will begin search for open detox bed for patient. LIVE Marquez
--- NOTE | 2023-07-12 14:29 | PC.NURSE ---
patient eloped from room 2. DEWAYNE RN looked in all bathrooms and alerted security.
--- NOTE | 2023-07-12 14:33 | PC.NURSE ---
Charge nurse called his cell phone and left a message.
== END 2023-07-12 14:35 | disposition left against medical advice (07) ==
PROVIDERS: Emergency Provider Emergency Medicine
DX: T50.901A Poisoning by unspecified drugs, medicaments and biological substances, accidental (unintentional), initial encounter (principal); E87.6 Hypokalemia; R00.0 Tachycardia, unspecified
CPT/HCPCS: 36415; 71045; 80048; 80053; 80076; 80305; 80320; 80329; 82550; 83605; 83735; 84484; 85025; 85610; 96361; 96374; 96375; 96376; 99284; G0480; J0612; J2060; J2405

== ENCOUNTER 2024-01-31 23:29 | Emergency (ER) | payer MEDICAID, OTHER, SELFPAY ==
[2020-12-02 21:10] VITALS: BMI 26.7
[2024-01-31 23:33] VITALS: BP 161/95; PULSE 85; RESP 18; TEMP 36.5; O2SAT 100; BMI 28.1
--- NOTE | 2024-01-31 23:49 | DI.CT.S_ITS ---
PROCEDURE: CT ABDOMEN PELVIS W CON INDICATIONS: R SIDED ABD PAIN, N/V X 1 DAY TECHNIQUE: After the administration of intravenous contrast, axial sections acquired from the lung bases to the pubic symphysis. Coronal and sagittal reformats were performed. For radiation dose reduction, the following was used: automated exposure control, adjustment of mA and/or kV according to patient size. COMPARISON: [facility], CT, CT ABDOMEN PELVIS W CON, 04/12/2023, 11:27. FINDINGS: Image quality: Diagnostic. Lower Chest: Chronic focal subpleural cystic changes in the medial right costophrenic sulcus. Normal heart size. No hiatal hernia. ABDOMEN: Liver: Marked left lobe hepatomegaly. Mild steatosis. No focal mass. Gallbladder: No wall thickening or calcified stones. Biliary ducts: No biliary dilation. Pancreas: Normal size and morphology without visible ductal dilatation or inflammation. Spleen: Size is within normal limits. Adrenal Glands: No adrenal nodules. Kidneys and Ureters: Symmetric enhancement. No nephrolithiasis or hydronephrosis. No hydroureter. Occasional cortical cysts Stomach and Bowel: Partially decompressed stomach with mild mucosal hyperemia. Normal small bowel loops. Normal appendix. Occasional colonic diverticulosis. No focal wall thickening or inflammation. Peritoneum: No abnormal intraperitoneal fluid. No free air. Ventral Wall: No significant ventral hernia. Abdominal Nodes: No retroperitoneal or mesenteric adenopathy by size criteria. Vessels: The abdominal aorta, IVC, and portal vein are of normal caliber. Attenuated splenic vein. Perigastric varices at the gastric cardia. PELVIS: Pelvic Organs: Moderate prostatomegaly. Bladder: No stones or wall thickening. Pelvic Nodes: No enlarged lymph nodes. Miscellaneous: No inguinal hernias are seen. Bones: No aggressive osseous abnormality. IMPRESSION: No explanation for right-sided abdomen pain. Stable, probably cirrhotic liver morphology and findings of compensated portal hypertension including perigastric varices. Moderate prostatomegaly. Dictated by: Adri Rivera M.D. on 02/01/2024 at 0:58 Approved by: Adri Rivera M.D. on 02/01/2024 at 1:06
[2024-01-31] MEDS: MORPHINE 4 MG/ML INJ IV (23:56)
[2024-01-31] MEDS: SODIUM CHLORIDE 0.9% 1,000 ML 1000 ML IV (23:56)
[2024-01-31] MEDS: ONDANSETRON 4 MG/2 ML INJ IV (23:56)
--- NOTE | 2024-01-31 23:58 | EKG_ITS ---
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
--- NOTE | 2024-01-31 23:59 | EKG_ITS ---
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
--- NOTE | 2024-01-31 23:59 | ED.ABDPAIN ---
HPI - Abdominal Pain General Chief Complaint: Abdominal Pain Stated Complaint: abd pain, vomiting Time Seen by Provider: 01/31/24 23:30 Source: patient Mode of arrival: Ambulatory History of Present Illness HPI narrative: 59-year-old male with history of Hypertension, polysubstance Use, type 2 diabetes, history of alcohol use disorder presents by private vehicle from home for innumerable episodes of vomiting as well as right-sided abdominal pain. Patient states that he has completely emptied his stomach but he continues to vomit. Denies recent alcohol consumption. Related Data Home Medications Medication Instructions Recorded Confirmed losartan 50 mg tablet 50 mg PO DAILY 01/31/24 01/31/24 metformin 500 mg tablet 500 mg PO BID 01/31/24 01/31/24 Previous Rx's Medication Instructions Recorded ondansetron 4 mg disintegrating 4 mg PO Q8H PRN nausea and 02/01/24 tablet vomiting #30 tabs Allergies Allergy/AdvReac Type Severity Reaction Status Date / Time lisinopril [LISINOPRIL] Allergy Unknown Verified 10/28/21 18:44 Patient History Medical History Alcohol use disorder Type 2 diabetes mellitus COVID-19 Arthritis of knee, left HTN (hypertension) Surgical History H/O arthroscopy Family History Father Hypertension Brother Cancer Social History household members: family and children Smoking Status: Current every day smoker alcohol intake: former substance use type: marijuana Smoking Status: Current every day smoker tobacco type: cigarettes alcohol intake frequency: holidays/special occasions only Alcohol type: beer Substance Use Type: marijuana Exam Initial Vital Signs Initial Vital Signs: Vital Signs Temperature 97.7 F 01/31/24 23:33 Pulse Rate 85 01/31/24 23:33 Respiratory Rate 18 01/31/24 23:33 Blood Pressure 161/95 H 01/31/24 23:33 Pulse Oximetry 100 01/31/24 23:33 Oxygen Delivery Method Room Air 01/31/24 23:33 Const: Awake, alert, uncomfortable, nontoxic appearing Cardiac: regular rate, regular rhythm RESP: unlabored, clear bilaterally, no wheezing GI: Soft, right upper and lower quadrant tenderness to deep palpation without rebound or guarding Skin: Warm, Dry, intact, no rashes Neuro: AO x3, CN II-XII grossly intact, moves all extremities Course Orders Ordered: ED Orders 01/31/24 23:45 Urine Culture Stat Urine Microscopic Stat 01/31/24 23:49 CT abdomen pelvis w con Stat CBC Auto Diff [Complete Blood Count AUTO DIFF] Stat CMP [Comprehensive Metabolic Panel] Stat Lactate (Lactic Acid) Stat Lipase Stat EKG-12 Lead Stat Discontinued Medications Sodium Chloride (Normal Saline 0.9%) 1,000 mls @ 1,000 mls/hr IV BOLUS ONE Stop: 02/01/24 00:48 Last Infusion: 02/01/24 01:10 Dose: Infused Documented By: Admin: 01/31/24 23:56 Dose: 1,000 mls/hr Documented By: REEMA Morphine Sulfate (Morphine 4 Mg/Ml Inj) 4 mg IV NOW ONE Stop: 01/31/24 23:50 Last Admin: 01/31/24 23:56 Dose: 4 mg Documented By: REEMA Ondansetron HCl (Ondansetron 4 Mg/2 Ml Inj) 4 mg IV NOW ONE Stop: 01/31/24 23:50 Last Admin: 01/31/24 23:56 Dose: 4 mg Documented By: REEMA Vital Signs Vital signs: Vital Signs - 8 hr 01/31/24 23:33 02/01/24 00:14 02/01/24 00:32 Temperature 97.7 F Pulse Rate 85 118 H 106 H Respiratory Rate 18 28 H Blood Pressure 161/95 H Pulse Oximetry 100 97 97 Oxygen Delivery Method Room Air 02/01/24 00:33 02/01/24 00:33 02/01/24 01:00 Temperature Pulse Rate 111 H 110 H Respiratory Rate 17 17 Blood Pressure 133/94 H Pulse Oximetry 97 100 Oxygen Delivery Method Room Air 02/01/24 01:02 02/01/24 01:02 Temperature Pulse Rate 110 H Respiratory Rate 22 Blood Pressure 157/94 H Pulse Oximetry 100 Oxygen Delivery Method Room Air MDM - Abdominal Pain Differential Diagnosis Differential diagnosis: Likely abdominal pain, acute appendicitis and calculus of kidney Lab Data 01/31/24 23:49 01/31/24 23:49 Labs: Lab Results 01/31/24 01/31/24 Range/Units 23:45 23:49 WBC 12.9 H (4.5-11.0) X10^3/uL RBC 5.41 (4.5-5.9) X10^6/uL Hgb 16.0 (13.5-17.5) g/dL Hct 48.1 (41-53) % MCV 89.0 (80-100) fL MCH 29.7 (26-34) PG MCHC 33.3 (30-36) % RDW 14.4 (11.6-14.8) % Plt Count 190 (150-400) X10^3/uL Neut % (Auto) 83.8 H (50-75) % Lymph % (Auto) 11.5 L (25-40) % [place] % (Auto) 3.7 (3-14) % Eos % (Auto) 0.3 L (2-4) % Baso % (Auto) 0.7 (0-2) % Neut # (Auto) 95273 H (5323-9718) /uL Lymph # (Auto) 1500 (4309-0303) /uL [place] # (Auto) 500 (0-900) /uL Eos # (Auto) 0 (0-450) /uL Baso # (Auto) 100 (0-100) /uL Sodium 132 L (137-145) mmol/L Potassium 4.1 (3.4-5.1) mmol/L Chloride 98 (98-107) mmol/L Carbon Dioxide 28 (22-32) mmol/L BUN 18 (9-20) mg/dL Creatinine 0.88 (0.66-1.25) mg/dL Estimated GFR > 60 (>60) mL/min BUN/Creatinine Ratio 20.5 (6-22) Glucose 364 H (70-100) mg/dL Lactate 1.5 (0.7-2.1) mmol/L Calcium 9.0 (8.4-10.2) mg/dL Total Bilirubin 1.5 H (0.2-1.3) mg/dL AST 26 (17-59) IU/L ALT 23 (<50) IU/L Alkaline Phosphatase 129 H (38-126) U/L Total Protein 8.0 (6.3-8.2) g/dL Albumin 4.2 (3.5-5.0) g/dL Globulin 3.8 (1.7-4.1) g/dL Albumin/Globulin Ratio 1.1 (1.0-2.8) Lipase 150 (23-300) U/L Urine RBC 0-1/hpf (0-5/HPF) Urine WBC 0-1/hpf (0-5/HPF) Ur Squamous Epith Cells 0-1 /hpf (0-5/HPF) Urine Bacteria Few (2-10) H (None) Vol Urine Centrifuged 10ml (spun) Point of care testing: Urine Dip Bedside Urine Glucose 2000+ mg/dl Bedside Urine Bilirubin - Negative Bedside Urine Ketone +/- 5 Urine Specific [place] 1.010 Bedside Urine Occult Blood - Negative Bedside Urine pH 7.0 Bedside Urine Protein +/- 15 Bedside Urine Urobilinogen - Negative Bedside Urine Nitrite - Negative Bedside Urine Leukocytes - Negative Esterase Imaging Data CT scan - abdomen/pelvis: Radiologist's Impression: PROCEDURE: CT ABDOMEN PELVIS W CON INDICATIONS: R SIDED ABD PAIN, N/V X 1 DAY TECHNIQUE: After the administration of intravenous contrast, axial sections acquired from the lung bases to the pubic symphysis. Coronal and sagittal reformats were performed. For radiation dose reduction, the following was used: automated exposure control, adjustment of mA and/or kV according to patient size. COMPARISON: Located Within [facility], CT, CT ABDOMEN PELVIS W CON, 04/12/2023, 11:27. FINDINGS: Image quality: Diagnostic. Lower Chest: Chronic focal subpleural cystic changes in the medial right costophrenic sulcus. Normal heart size. No hiatal hernia. ABDOMEN: Liver: Marked left lobe hepatomegaly. Mild steatosis. No focal mass. Gallbladder: No wall thickening or calcified stones. Biliary ducts: No biliary dilation. Pancreas: Normal size and morphology without visible ductal dilatation or inflammation. Spleen: Size is within normal limits. Adrenal Glands: No adrenal nodules. Kidneys and Ureters: Symmetric enhancement. No nephrolithiasis or hydronephrosis. No hydroureter. Occasional cortical cysts Stomach and Bowel: Partially decompressed stomach with mild mucosal hyperemia. Normal small bowel loops. Normal appendix. Occasional colonic diverticulosis. No focal wall thickening or inflammation. Peritoneum: No abnormal intraperitoneal fluid. No free air. Ventral Wall: No significant ventral hernia. Abdominal Nodes: No retroperitoneal or mesenteric adenopathy by size criteria. Vessels: The abdominal aorta, IVC, and portal vein are of normal caliber. Attenuated splenic vein. Perigastric varices at the gastric cardia. PELVIS: Pelvic Organs: Moderate prostatomegaly. Bladder: No stones or wall thickening. Pelvic Nodes: No enlarged lymph nodes. Miscellaneous: No inguinal hernias are seen. Bones: No aggressive osseous abnormality. IMPRESSION: No explanation for right-sided abdomen pain. Stable, probably cirrhotic liver morphology and findings of compensated portal hypertension including perigastric varices. Moderate prostatomegaly. Dictated by: Adri Rivera M.D. on 02/01/2024 at 0:58 Approved by: Adri Rivera M.D. on 02/01/2024 at 1:06 MDM Narrative Medical decision making narrative: abdominal pain with nausea vomiting. No peritoneal signs on exam but patient was tender in the right lower and right upper quadrants of the abdomen. Laboratory work, pain medications, IV fluids, nausea medications ordered as well as CT imaging. Laboratory work is reviewed, no significant abnormalities identified. Patient has chronic elevation of his bilirubin which is approximately at baseline. Electrolytes within normal limits. CT scan shows no acute findings to explain right-sided abdominal pain, findings of cirrhosis seen, which were felt to be chronic. Patient was able to tolerate p.o. after Zofran and felt better after fluids. Patient counseled on lab and imaging findings. Recommended avoidance of alcohol and Tylenol Due to cirrhotic liver appearance. Nausea medication sent to pharmacy of choice. Discharge Plan Departure Patient Disposition: Home Clinical Impression: Nausea vomiting and diarrhea Instructions: DI for Abdominal Pain-Adult Activity Restrictions/Additional Instructions: Your laboratory showed a high glucose but no other new findings. On your CT today they did see that you have cirrhosis changes in your liver. Avoid Tylenol and alcohol to stop damaging your liver. Prescriptions: New ondansetron 4 mg tablet,disintegrating 4 mg PO Q8H PRN (Reason: nausea and vomiting) Qty: 30 0RF No Action losartan 50 mg tablet 50 mg PO DAILY metformin 500 mg tablet 500 mg PO BID Stand Alone Forms: Patient Portal/API/Survey
[2024-02-01 00:01] LABS: Add Manual Diff / Slide Review NO; Basophils Absolute Auto 100 /uL (0-100); Basophils Percent Auto 0.7 % (0-2); Eosinophils Absolute Auto 0 /uL (0-450); Eosinophils Percent Auto 0.3 % (2-4); Hematocrit 48.1 % (41-53); Lymphocytes Absolute Auto 1500 /uL (1100-4500); Lymphocytes Percent Auto 11.5 % (25-40); Mean Corpuscular HGB Conc 33.3 % (30-36); Mean Corpuscular Hemoglobin 29.7 PG (26-34); Monocytes Absolute Auto 500 /uL (0-900); Monocytes Percent Auto 3.7 % (3-14); Neutrophils Absolute Auto 10800 /uL (1500-7000); Neutrophils Percent Auto 83.8 % (50-75); Platelet Count 190 X10^3/uL (150-400); Red Blood Cell Count 5.41 X10^6/uL (4.5-5.9); Red Cell Distribution Width 14.4 % (11.6-14.8); White Blood Cell Count 12.9 X10^3/uL (4.5-11.0)
[2024-02-01 00:09] LABS: Bacteria Urine Few (2-10); RBC Urine 0-1/HPF (0-5/HPF); Squamous Epithelial Cell Urine 0-1 /HPF (0-5/HPF); Urine Volume 10mL (spun); WBC Urine 0-1/HPF (0-5/HPF)
[2024-02-01 00:14] VITALS: PULSE 118; RESP 28; O2SAT 97
[2024-02-01 00:18] LABS: Alanine Aminotransferase 23 IU/L (<50); Albumin 4.2 g/dL (3.5-5.0); Albumin Globulin Ratio 1.1 (1.0-2.8); Alkaline Phosphatase 129 U/L (38-126); Aspartate Aminotransferase 26 IU/L (17-59); BUN Creatinine Ratio 20.5 (6-22); Bilirubin Total 1.5 mg/dL (0.2-1.3); Blood Urea Nitrogen 18 mg/dL (9-20); Carbon Dioxide 28 mmol/L (22-32); Chloride 98 mmol/L (98-107); Estimated Glomerular Filt Rate > 60 mL/min (>60); Globulin 3.8 g/dL (1.7-4.1); Glucose 364 mg/dL (70-100); HEMOLYSIS < 15 (0-50); Lactate (Lactic Acid) 1.5 mmol/L (0.7-2.1); Lipase 150 U/L (23-300); Potassium 4.1 mmol/L (3.4-5.1); Sodium 132 mmol/L (137-145)
--- NOTE | 2024-02-01 00:21 | PC.NURSE ---
Pt to imaging via stretcher with tech
[2024-02-01 00:32] VITALS: PULSE 106; O2SAT 97
[2024-02-01 00:33] VITALS: BP 133/94; PULSE 111; RESP 17; O2SAT 97
[2024-02-01 01:00] VITALS: PULSE 110; RESP 17; O2SAT 100
[2024-02-01 01:02] VITALS: BP 157/94; PULSE 110; RESP 22; O2SAT 100
--- NOTE | 2024-02-01 01:11 | PC.NURSE ---
Pt ambulatory to restroom without difficulty or assistance. Taking po fluids well.
== END 2024-02-01 01:29 | disposition home or self-care (01) ==
PROVIDERS: Emergency Provider Emergency Medicine
DX: R11.2 Nausea with vomiting, unspecified (principal); R19.7 Diarrhea, unspecified; R00.0 Tachycardia, unspecified
CPT/HCPCS: 36415; 74177; 80053; 81003; 81015; 83605; 83690; 85025; 87086; 93005; 96361; 96374; 96375; 99284; J2270; J2405; Q9967

== ENCOUNTER 2024-02-05 09:13 | Emergency (ER) | payer MEDICAID, OTHER, SELFPAY ==
[2020-12-02 21:10] VITALS: BMI 26.7
[2024-02-05] VITALS (18 sets, daily range): BP systolic 118–197; BP diastolic 63–100; PULSE 90–121; RESP 4–22; TEMP 36.2; O2SAT 96–100; BMI 26.9
--- NOTE | 2024-02-05 09:33 | ED_ITS ---
HPI - General Adult General Chief complaint: Toxicology Problem Stated complaint: Smoke 2 blue pills,received narcan Time Seen by Provider: 02/05/24 09:32 Source: EMS Mode of arrival: EMS History of Present Illness HPI narrative: 59-year-old male with history of fentanyl and methamphetamine abuse, took 3 hits of what he believed to be fentanyl this morning with a group of his friends, believes that he passed out, feels that he could taste Narcan, wonders if his friends gave him a dose of Narcan, he has his own supply of Narcan well, 911 was called, arrived by EMS, EMS apparently did not given any Narcan during transport, glucose reportedly okay. Patient feels like he has fast heart rate sensation, history of diabetes noted, denies chest pain or shortness of breath at this time. Denies abdominal pain. Denies any trauma injuries. Denied any headache, photophobia, neck pain. Denies any focal weakness. He does not believe that he was trying to hurt himself, he uses drugs recreationally. He denies thoughts of wanting to hurt himself or others. Related Data Home Medications Medication Instructions Recorded Confirmed losartan 50 mg tablet 50 mg PO DAILY 01/31/24 01/31/24 metformin 500 mg tablet 500 mg PO BID 01/31/24 01/31/24 Previous Rx's Medication Instructions Recorded ondansetron 4 mg disintegrating 4 mg PO Q8H PRN nausea and 02/01/24 tablet vomiting #30 tabs Allergies Allergy/AdvReac Type Severity Reaction Status Date / Time lisinopril [LISINOPRIL] Allergy Unknown Verified 10/28/21 18:44 hydralazine Allergy Verified 02/05/24 12:40 Review of Systems Review of Systems Narrative: See HPI Patient History Medical History Alcohol use disorder Type 2 diabetes mellitus COVID-19 Arthritis of knee, left HTN (hypertension) Surgical History H/O arthroscopy Family History Father Hypertension Brother Cancer Social History household members: family and children Smoking Status: Current every day smoker alcohol intake: former substance use type: marijuana Smoking Status: Current every day smoker tobacco type: cigarettes alcohol intake frequency: holidays/special occasions only Alcohol type: beer Substance Use Type: marijuana, amphetamines, opiates and methamphetamine Exam Narrative Exam Narrative: GENERAL: Well-developed patient, in mild distress. HEAD: Atraumatic. Normocephalic. EYES: Pupils equal round and reactive. Extraocular motions intact. No scleral icterus. No injection or drainage. ENT: Nose without bleeding, purulent drainage. Throat without erythema, tonsillar hypertrophy or exudate. Airway patent. NECK: Trachea midline. Non tender CARDIOVASCULAR: Fast rate regular rhythm, no obvious murmur, peripheral pulses good. RESPIRATORY: Clear to auscultation. Breath sounds equal bilaterally. No wheezes, rales, or rhonchi. GASTROINTESTINAL: Abdomen soft, non-tender, nondistended. EXTREMITIES: No edema or joint tenderness. BACK: Nontender without deformity or crepitance. No flank tenderness. NEURO: AOx3. Motor functions grossly nonfocal SKIN: No rash or erythema of visible areas Initial Vital Signs Initial Vital Signs: Vital Signs Temperature 97.1 F L 02/05/24 09:16 Pulse Rate 115 H 02/05/24 09:16 Respiratory Rate 20 02/05/24 09:16 Blood Pressure 197/86 H 02/05/24 09:16 Pulse Oximetry 100 02/05/24 09:16 Oxygen Delivery Method Room Air 02/05/24 09:16 Course Orders Ordered: ED Orders 02/05/24 10:40 Urine Drug Screen, Rapid Stat 02/05/24 11:20 COVID19 -Nasal RAPID Stat Discontinued Medications Sodium Chloride (Normal Saline 0.9%) 1,000 mls @ 500 mls/hr IV BOLUS ONE Stop: 02/05/24 11:39 Last Infusion: 02/05/24 11:30 Dose: Infused Documented By: Admin: 02/05/24 09:58 Dose: 500 mls/hr Documented By: WILBER Insulin Human Regular (Insulin Regular 100 Unit/Ml 3 Ml Vial) 10 unit SUBCUT NOW ONE Stop: 02/05/24 14:53 Last Admin: 02/05/24 15:15 Dose: 10 unit Documented By: ROBERTO Co-signed By: CANDIE Vital Signs Vital signs: Vital Signs - 8 hr 02/05/24 11:30 02/05/24 11:30 02/05/24 12:00 Pulse Rate 108 H 108 H Respiratory Rate 15 13 Blood Pressure 146/76 H Pulse Oximetry 99 97 Oxygen Delivery Method Room Air Room Air 02/05/24 12:01 02/05/24 12:01 02/05/24 12:30 Pulse Rate 108 H 105 H Respiratory Rate 15 15 Blood Pressure 151/74 H Pulse Oximetry 98 97 Oxygen Delivery Method Room Air 02/05/24 12:31 02/05/24 12:31 02/05/24 13:00 Pulse Rate 104 H Respiratory Rate 16 Blood Pressure 118/64 134/92 H Pulse Oximetry 97 Oxygen Delivery Method Room Air 02/05/24 13:00 02/05/24 13:30 02/05/24 13:30 Pulse Rate 121 H 107 H Respiratory Rate 18 14 Blood Pressure 158/85 H Pulse Oximetry 98 96 Oxygen Delivery Method Room Air Room Air 02/05/24 14:00 02/05/24 14:01 02/05/24 14:01 Pulse Rate 116 H 110 H Respiratory Rate 20 19 Blood Pressure 143/73 H Pulse Oximetry 97 98 Oxygen Delivery Method 02/05/24 14:30 02/05/24 14:30 02/05/24 15:00 Pulse Rate 90 Respiratory Rate 13 Blood Pressure 119/63 150/86 H Pulse Oximetry 98 Oxygen Delivery Method 02/05/24 15:00 Pulse Rate 99 H Respiratory Rate 4 L Blood Pressure Pulse Oximetry 98 Oxygen Delivery Method Medical Decision Making Lab Data Lab results reviewed: Yes I reviewed the patient's lab results. Lab results narrative: White blood cell count 9200, hemoglobin 14.4, platelets adequate. Glucose 314, sodium 132, potassium 4.3, serum CO2 32, BUN 23, creatinine 1.04. Anion gap to not elevated, doubt DKA. Alcohol level negative. UDS positive for methamphetamine. Acetaminophen level negative, salicylate level negative. COVID negative. 02/05/24 10:00 02/05/24 10:00 Labs: Lab Results 02/05/24 02/05/24 02/05/24 Range/Units 10:00 10:40 11:20 WBC 9.2 (4.5-11.0) X10^3/uL RBC 4.72 (4.5-5.9) X10^6/uL Hgb 14.4 (13.5-17.5) g/dL Hct 42.1 (41-53) % MCV 89.2 (80-100) fL MCH 30.5 (26-34) PG MCHC 34.2 (30-36) % RDW 14.4 (11.6-14.8) % Plt Count 169 (150-400) X10^3/uL Neut % (Auto) 76.1 H (50-75) % Lymph % (Auto) 15.8 L (25-40) % [place] % (Auto) 5.9 (3-14) % Eos % (Auto) 1.7 L (2-4) % Baso % (Auto) 0.5 (0-2) % Neut # (Auto) 7000 (2434-5657) /uL Lymph # (Auto) 1500 (6043-4660) /uL [place] # (Auto) 500 (0-900) /uL Eos # (Auto) 200 (0-450) /uL Baso # (Auto) 0 (0-100) /uL Sodium 132 L (137-145) mmol/L Potassium 4.3 (3.4-5.1) mmol/L Chloride 98 (98-107) mmol/L Carbon Dioxide 32 (22-32) mmol/L BUN 23 H (9-20) mg/dL Creatinine 1.04 (0.66-1.25) mg/dL Estimated GFR > 60 (>60) mL/min BUN/Creatinine Ratio 22.1 H (6-22) Glucose 314 H (70-100) mg/dL Lactate 1.1 (0.7-2.1) mmol/L Calcium 9.6 (8.4-10.2) mg/dL Total Bilirubin 1.2 (0.2-1.3) mg/dL Conjugated Bilirubin 0.0 (0.0-0.3) md/dL Unconjugated Bilirubin 1.0 (0.0-1.1) mg/dL AST 29 (17-59) IU/L ALT 20 (<50) IU/L Alkaline Phosphatase 106 (38-126) U/L Total Protein 7.1 (6.3-8.2) g/dL Albumin 4.1 (3.5-5.0) g/dL Globulin 3.0 (1.7-4.1) g/dL Albumin/Globulin Ratio 1.4 (1.0-2.8) Salicylates < 1.0 (<20) mg/dL U Opiates 300ng/mL cut Negative (Negative) Ur Oxycodone Screen Negative (Negative) Urine Methadone Screen Negative (Negative) Acetaminophen < 10 (10-30) ug/mL Ur Barbiturates Screen Negative (Negative) U Tricyclic Antidepress Negative (Negative) Ur Phencyclidine Scrn Negative (Negative) Ur Amphetamines Screen Negative (Negative) U Methamphetamines Scrn Positive H (Negative) Ur MDMA Scrn (Ecstasy) Negative (Negative) U Benzodiazepines Scrn Negative (Negative) Urine Cocaine Screen Negative (Negative) U Marijuana (THC) Screen Negative (Negative) Urine pH Normal (Normal) Urine Specific [place] Normal (Normal) Ethyl Alcohol < 10 ( - 10) mg/dL Ur Creatinine Normal (Normal) SARS-CoV-2 (PCR) Negative (Negative) Point of Care Testing Glucose POC 279 Point of care testing: Point of Care Testing Glucose POC 279 ECG Data Attestation: I personally reviewed and interpreted this ECG as follows: Interpretation: Sinus tachycardia with rate of 113, PVC noted, no obvious ST segment elevation or depression changes. SC 140, QRS 88, QTC 422. MDM Narrative Medical decision making narrative: 59-year-old male with history of fentanyl and methamphetamine abuse, arrived by EMS with altered mental status, taste of Narcan in his mouth, he had not self administer, EMS did not administer, suspected 1 of his friends administered Narcan, maintaining airway on arrival. Sinus tachycardia noted on monitor and EKG, no obvious ischemic changes. Labs pending. Elevated blood sugar, no DKA noted, potassium level adequate, IV fluids given, subcutaneous insulin. Urine drug screen positive for methamphetamine, alcohol level negative. Other screening labs unremarkable. COVID negative noted. visitor services coordinator consult for disposition Repeat glucose after insulin and fluids, 270, decreasing 1430, patient accepted for detox through [facility]. Patient to be discharged, we will be transported after discharge directly to [facility] for inpatient treatment. Discharge Plan Departure Patient Disposition: Home Clinical Impression: Polysubstance abuse, Fentanyl use disorder, mild, abuse, Methamphetamine abuse, Hyperglycemia Activity Restrictions/Additional Instructions: Altered mental status with history context polysubstance abuse, admitting to fentanyl and methamphetamine use, possible use of Narcan by bystanders by history. Maintaining airway here. Urine tox screen was positive for methamphetamine. Increased heart rate, improved with fluids and time. Sugar level elevated, subcutaneous insulin dose given. Other labs screening unremarkable. visitor services coordinator consult was obtained, detox requested, bed found at [facility]. Discharged home. To be driven directly to [facility] however by sister family member. Prescriptions: No Action losartan 50 mg tablet 50 mg PO DAILY metformin 500 mg tablet 500 mg PO BID ondansetron 4 mg tablet,disintegrating 4 mg PO Q8H PRN (Reason: nausea and vomiting) Qty: 30 0RF Stand Alone Forms: Patient Portal/API/Survey
--- NOTE | 2024-02-05 09:52 | EKG_ITS ---
[address] [id number] Test Date: 2024-02-05 Pat Name: Logan Anguiano Department: [facility] Room: Gender: Male Manager Pulmonary: ESTELA : 1965 Requested By: Order Number: [id number] Reading MD: Mundo Tran Measurements Intervals [place] Rate: 113 P: 51 MI: 140 QRS: 3 QRSD: 88 T: 41 QT: 308 QTc: 422 Interpretive Statements Sinus tachycardia with frequent premature ventricular complexes Electronically Signed On 02-05-2024 17:59:12 PST by Mundo Tran
[2024-02-05] MEDS: SODIUM CHLORIDE 0.9% 1,000 ML 500 ML IV (09:58)
[2024-02-05 10:05] LABS: Add Manual Diff / Slide Review NO; Basophils Absolute Auto 0 /uL (0-100); Basophils Percent Auto 0.5 % (0-2); Eosinophils Absolute Auto 200 /uL (0-450); Eosinophils Percent Auto 1.7 % (2-4); Hematocrit 42.1 % (41-53); Hemoglobin 14.4 g/dL (13.5-17.5); Lymphocytes Absolute Auto 1500 /uL (1100-4500); Lymphocytes Percent Auto 15.8 % (25-40); Mean Corpuscular HGB Conc 34.2 % (30-36); Mean Corpuscular Hemoglobin 30.5 PG (26-34); Mean Corpuscular Volume 89.2 fL (80-100); Monocytes Absolute Auto 500 /uL (0-900); Monocytes Percent Auto 5.9 % (3-14); Neutrophils Absolute Auto 7000 /uL (1500-7000); Neutrophils Percent Auto 76.1 % (50-75); Platelet Count 169 X10^3/uL (150-400); Red Blood Cell Count 4.72 X10^6/uL (4.5-5.9); Red Cell Distribution Width 14.4 % (11.6-14.8); White Blood Cell Count 9.2 X10^3/uL (4.5-11.0)
[2024-02-05 10:20] LABS: Acetaminophen < 10 ug/mL (10-30); Alanine Aminotransferase 20 IU/L (<50); Albumin 4.1 g/dL (3.5-5.0); Albumin Globulin Ratio 1.4 (1.0-2.8); Alkaline Phosphatase 106 U/L (38-126); Aspartate Aminotransferase 29 IU/L (17-59); BUN Creatinine Ratio 22.1 (6-22); Bilirubin Total 1.2 mg/dL (0.2-1.3); Blood Urea Nitrogen 23 mg/dL (9-20); Calcium 9.6 mg/dL (8.4-10.2); Carbon Dioxide 32 mmol/L (22-32); Chloride 98 mmol/L (98-107); Estimated Glomerular Filt Rate > 60 mL/min (>60); Ethanol (ETOH) < 10 mg/dL; Glucose 314 mg/dL (70-100); HEMOLYSIS < 15 (0-50); Lactate (Lactic Acid) 1.1 mmol/L (0.7-2.1); Potassium 4.3 mmol/L (3.4-5.1); Salicylate < 1.0 mg/dL (<20); Sodium 132 mmol/L (137-145); Total Protein 7.1 g/dL (6.3-8.2)
[2024-02-05 10:59] LABS: Ur Creatinine Normal (Normal); Ur Specific Gravity Normal (Normal); Urine Amphetamines Negative (Negative); Urine Barbiturates Negative (Negative); Urine Benzodiazepines Negative (Negative); Urine Cocaine Negative (Negative); Urine MDMA Negative (Negative); Urine Methadone Negative (Negative); Urine Methamphetamines Positive (Negative); Urine Opiates Negative (Negative); Urine Oxycodone Negative (Negative); Urine Phencyclidine Negative (Negative); Urine THC Negative (Negative); Urine Tricyclic Antidepressant Negative (Negative); Urine pH Normal (Normal)
[2024-02-05 11:49] LABS: COVID19 -Nasal RAPID Negative (Negative)
[2024-02-05] MEDS: INSULIN REGULAR 100 UNIT/ML 3 ML VIAL 10 UNIT SUBCUT (15:15)
--- NOTE | 2024-02-05 15:53 | CM.SWNOTE ---
ED HISTORIOGRAPHY PROFESSOR Assessment Note Patient is 59 y/o male who presents to ED via EMS after overdose. Patient endorses smoking Fentanyl and Methamphetamine early this morning. It is reported that someone gave patient Narcan and called 911. Patient has hx of polysubstance use and PTSD. Patient denies SI, patient endorses thoughts of harming people that stole from him. Patient is interested in detox. HISTORIOGRAPHY PROFESSOR enters room to meet with patient, present in room is patient's sister. Patient gives consent for sister to be present. Patient endorses hx of detox about 20 years ago at [facility] when he detoxed from Alcohol. Patient endorses hx of going to inpatient rehab 8 or 9 times for ETOH. Patient denies ETOH use in the last 2.5 years. Patient endorses he started using Methamphetamine and Fentanyl about 2 years ago. Patient endorses regular use, last use this morning. Patient endorses hx of not being able to sit still, nausea, vomiting and sleeplessness. Patient denies hx of seizures. HISTORIOGRAPHY PROFESSOR calls [facility] it is reported that they are full today. HISTORIOGRAPHY PROFESSOR calls [facility], it is reported that they have beds. HISTORIOGRAPHY PROFESSOR calls [facility] for phone intake screening. Patient's sister states she is going to leave to go to work and come back. HISTORIOGRAPHY PROFESSOR faxes clinicals for review. [facility] calls back and states they can accept patient at any time today. HISTORIOGRAPHY PROFESSOR informs patient who indicates agreement and understanding. Patient's sister is contacted and returns to ED to take patient to detox. HISTORIOGRAPHY PROFESSOR calls [facility] upon's patient's discharge. HISTORIOGRAPHY PROFESSOR provides patient with information about [facility] detox and [facility] outpatient resources. Plan: patient to d/c with sister to transport patient to [facility] this afternoon. Yue Cooley, VICE PRESIDENT INDUSTRIAL RELATIONS
== END 2024-02-05 15:37 | disposition home or self-care (01) ==
PROVIDERS: Emergency Provider Emergency Medicine
DX: F11.10 Opioid abuse, uncomplicated (principal); F19.10 Other psychoactive substance abuse, uncomplicated; F15.10 Other stimulant abuse, uncomplicated; R00.0 Tachycardia, unspecified; E11.65 Type 2 diabetes mellitus with hyperglycemia
CPT/HCPCS: 36415; 80053; 80076; 80305; 80320; 80329; 82962; 83605; 85025; 87635; 93005; 96360; 96361; 96372; 99284; G0480

== ENCOUNTER 2024-04-30 00:53 | Emergency (ER) | payer OTHER, SELFPAY ==
[2020-12-02 21:10] VITALS: BMI 26.7
[2024-04-30] VITALS (7 sets, daily range): BP systolic 142–170; BP diastolic 90–96; PULSE 93–112; RESP 16–18; TEMP 36.7; O2SAT 97–100; BMI 26.2
[2024-04-30] MEDS: ONDANSETRON 4 MG ODT SL (01:03)
--- NOTE | 2024-04-30 05:41 | ED_ITS ---
HPI - General Adult General Chief complaint: Upper Respiratory Symptoms Stated complaint: Flu Time Seen by Provider: 04/30/24 04:20 Source: patient and EMS Mode of arrival: EMS History of Present Illness HPI narrative: 59-year-old male history of diabetes, has 2 weeks duration of cough, now with right-sided chest discomfort for the last couple of days. Worse chest pain with deep inspiration. Denies pain in the abdomen or back. Denies nausea or vomiting. Denies diarrhea. Denies black or red stools. Denies painful or frequent urination. Related Data Home Medications Medication Instructions Recorded Confirmed losartan 50 mg tablet 50 mg PO DAILY 01/31/24 01/31/24 metformin 500 mg tablet 500 mg PO BID 01/31/24 01/31/24 Previous Rx's Medication Instructions Recorded ondansetron 4 mg disintegrating 4 mg PO Q8H PRN nausea and 02/01/24 tablet vomiting #30 tabs albuterol sulfate 90 mcg/actuation 2 puff inhalation Q6H PRN 04/30/24 aerosol inhaler shortness of breath or wheezing #8.5 grams cefdinir 300 mg capsule 300 mg PO BID 10 days #20 caps 04/30/24 doxycycline hyclate 100 mg capsule 100 mg PO BID 10 days #20 caps 04/30/24 hydrocodone 5 mg-acetaminophen 325 1 tab PO Q6H PRN pain #14 tabs 04/30/24 mg tablet Allergies Allergy/AdvReac Type Severity Reaction Status Date / Time lisinopril [LISINOPRIL] Allergy Unknown Verified 10/28/21 18:44 hydralazine Allergy Verified 02/05/24 12:40 Patient History Medical History Alcohol use disorder Type 2 diabetes mellitus COVID-19 Arthritis of knee, left HTN (hypertension) Surgical History H/O arthroscopy Family History Father Hypertension Brother Cancer Social History household members: family and children Smoking Status: Current every day smoker alcohol intake: former substance use type: marijuana Smoking Status: Current every day smoker tobacco type: cigarettes alcohol intake frequency: holidays/special occasions only Alcohol type: beer Exam Narrative Exam Narrative: GENERAL: Well-developed patient, in mild distress. HEAD: Atraumatic. Normocephalic. EYES: Pupils equal round and reactive. Extraocular motions intact. No scleral icterus. No injection or drainage. ENT: Nose without bleeding, purulent drainage. Throat without erythema, tonsillar hypertrophy or exudate. Airway patent. NECK: Trachea midline. Non tender CARDIOVASCULAR: Regular rate and rhythm without murmurs, gallops, or rubs. RESPIRATORY: Clear to auscultation. Breath sounds equal bilaterally. No wheezes, rales, or rhonchi. No retractions, no tenderness to palpation chest wall GASTROINTESTINAL: Abdomen soft, non-tender, nondistended. EXTREMITIES: No edema or joint tenderness. BACK: Nontender without deformity or crepitance. No flank tenderness. NEURO: AOx3. Motor functions grossly nonfocal SKIN: No rash or erythema of visible areas Initial Vital Signs Initial Vital Signs: Vital Signs Temperature 98.1 F 04/30/24 00:56 Pulse Rate 109 H 04/30/24 00:56 Respiratory Rate 16 04/30/24 00:56 Blood Pressure 142/93 H 04/30/24 00:56 Pulse Oximetry 98 04/30/24 00:56 Oxygen Delivery Method Room Air 04/30/24 00:56 Course Orders Ordered: Discontinued Medications Hydrocodone Bitart/Acetaminophen (Hydrocodone/Acet 5/325 Tablet) 1 tab PO NOW ONE Stop: 04/30/24 07:42 Last Admin: 04/30/24 08:04 Dose: Not Given Documented By: EMILIANA Doxycycline Hyclate (Doxycycline Hyclate 100 Mg Tablet) 100 mg PO NOW ONE Stop: 04/30/24 06:39 Last Admin: 04/30/24 07:01 Dose: 100 mg Documented By: Sodium Chloride (Normal Saline 0.9%) 1,000 mls @ 1,000 mls/hr IV BOLUS ONE Stop: 04/30/24 06:27 Last Infusion: 04/30/24 06:17 Dose: Infused Documented By: Admin: 04/30/24 05:42 Dose: 1,000 mls/hr Documented By: Ceftriaxone Sodium 1,000 mg/ (Sodium Chloride) 100 mls @ 200 mls/hr IV NOW ONE Stop: 04/30/24 06:39 Last Infusion: 04/30/24 07:47 Dose: Infused Documented By: Admin: 04/30/24 07:01 Dose: 200 mls/hr Documented By: Ondansetron HCl (Ondansetron 4 Mg Odt) 4 mg SL NOW ONE Stop: 04/30/24 01:01 Last Admin: 04/30/24 01:03 Dose: 4 mg Documented By: HNG Vital Signs Vital signs: Vital Signs - 8 hr 04/30/24 00:56 04/30/24 05:09 04/30/24 05:09 Temperature 98.1 F Pulse Rate 109 H 112 H Respiratory Rate 16 18 Blood Pressure 142/93 H 150/90 H Pulse Oximetry 98 98 Oxygen Delivery Method Room Air 04/30/24 05:30 04/30/24 05:30 04/30/24 06:00 Temperature Pulse Rate 93 H Respiratory Rate Blood Pressure 157/96 H 154/93 H Pulse Oximetry 98 Oxygen Delivery Method 04/30/24 06:00 04/30/24 06:30 04/30/24 06:30 Temperature Pulse Rate 102 H 95 H Respiratory Rate 18 18 Blood Pressure 170/94 H Pulse Oximetry 100 100 Oxygen Delivery Method 04/30/24 07:00 04/30/24 07:00 04/30/24 07:30 Temperature Pulse Rate 104 H 94 H Respiratory Rate Blood Pressure 154/93 H Pulse Oximetry 97 99 Oxygen Delivery Method 04/30/24 07:30 Temperature Pulse Rate Respiratory Rate Blood Pressure 156/92 H Pulse Oximetry Oxygen Delivery Method Medical Decision Making Lab Data Lab results reviewed: Yes I reviewed the patient's lab results. Lab results narrative: White blood cell count 98943, hemoglobin 14.7, platelets 380,000. Glucose 314. Anion gap 10. Serum sodium 136, potassium 4.2, chloride 101, carbon dioxide 24. BUN 13 with creatinine 0.72. Slight alkaline phosphatase elevation, other liver functions unremarkable. Swab for COVID/flu/RSV negative. 04/30/24 05:40 04/30/24 05:40 Labs: Lab Results 04/30/24 04/30/24 04/30/24 Range/Units 05:09 05:40 06:54 WBC 20.6 H (4.5-11.0) X10^3/uL RBC 5.03 (4.5-5.9) X10^6/uL Hgb 14.7 (13.5-17.5) g/dL Hct 43.6 (41-53) % MCV 86.5 (80-100) fL MCH 29.2 (26-34) PG MCHC 33.8 (30-36) % RDW 14.1 (11.6-14.8) % Plt Count 380 (150-400) X10^3/uL Neut % (Auto) 88.2 H (50-75) % Lymph % (Auto) 7.0 L (25-40) % [place] % (Auto) 3.9 (3-14) % Eos % (Auto) 0.1 L (2-4) % Baso % (Auto) 0.8 (0-2) % Neut # (Auto) 80886 H (4735-6585) /uL Lymph # (Auto) 1400 (5673-2194) /uL [place] # (Auto) 800 (0-900) /uL Eos # (Auto) 0 (0-450) /uL Baso # (Auto) 200 H (0-100) /uL Sodium 136 L (137-145) mmol/L Potassium 4.2 (3.4-5.1) mmol/L Chloride 101 (98-107) mmol/L Carbon Dioxide 25 (22-32) mmol/L BUN 13 (9-20) mg/dL Creatinine 0.72 (0.66-1.25) mg/dL Estimated GFR > 60 (>60) mL/min BUN/Creatinine Ratio 18.1 (6-22) Glucose 314 H (70-100) mg/dL Lactate 1.1 (0.7-2.1) mmol/L Calcium 8.8 (8.4-10.2) mg/dL Total Bilirubin 0.8 (0.2-1.3) mg/dL AST 19 (17-59) IU/L ALT 18 (<50) IU/L Alkaline Phosphatase 167 H (38-126) U/L Total Protein 8.3 H (6.3-8.2) g/dL Albumin 3.9 (3.5-5.0) g/dL Globulin 4.4 H (1.7-4.1) g/dL Albumin/Globulin Ratio 0.9 L (1.0-2.8) SARS-CoV-2 (PCR) Negative (Negative) Influenza A (RT-PCR) Flu a negative (NEGATIVE) Influenza B (RT-PCR) Flu b negative (NEGATIVE) RSV (PCR) Negative (Negative) ECG Data Attestation: I personally reviewed and interpreted this ECG as follows: Interpretation: Sinus tachycardia with rate of 105, no obvious ST segment elevation or depression changes. LA 146, QRS 88, QTC 449. MDM Narrative Medical decision making narrative: 59-year-old diabetic male with 2 weeks' duration of cough, right-sided chest pain last couple of days, worse with inspiration. No oxygen requirement. No respiratory distress. No wheezing or crackles on lung exam. Sinus tachycardia noted. We will send labs EKG chest x-ray. White blood cell count 24591 noted, add lactate. IV fluid bolus. Chest x-ray two view. Impressions: ?Mild bronchial wall thickening could reflect background bronchitis/bronchiolitis or viral etiology. There are some slightly more confluent opacities in the right mid lung zone and left lung base which are suspicious for superimposed infiltrate.. See teleradiology report Blood cultures, IV ceftriaxone, p.o. doxycycline. IV fluids infusing, evaluate for response to fluids, hopefully improved heart rate, blood pressure stable. No respiratory distress, no hypoxia. Tachycardia has resolved, most recent heart rate 95, systolic blood pressure 150. Lactate normal. We will discharge patient on cefdinir and doxycycline oral regimen confirmed community-acquired pneumonia. Patient agreeable to this plan. Inhaler and pain medications to use as well. Recheck with regular provider in 2 days. Return to this/nearest emergency department for any change worsening symptoms or any concerns prior Discharge Plan Departure Patient Disposition: Home Clinical Impression: Pneumonia Activity Restrictions/Additional Instructions: Rafat Edgar had 2 weeks duration of cough with right-sided recent chest pain. Chest x- ray suspicious for pneumonia. IV antibiotics and oral antibiotics initiated. Oral pain medications given. Initial heart rate was high, with fluids it improved. You did not seem to be needing oxygen. Take pain medications as needed. Prescription for further oral antibiotics sent to your pharmacy. Take antibiotics as directed. Use inhaler as needed for control of shortness of breath if you develop that. Recheck lung exam and symptoms with your regular doctor in the next couple of days. Return to this/nearest emergency department for any change worsening symptoms or any concerns prior. Thank you for allowing our team to evaluate you today. Prescriptions: New cefdinir 300 mg capsule 300 mg PO BID 10 Days Qty: 20 0RF doxycycline hyclate 100 mg capsule 100 mg PO BID 10 Days Qty: 20 0RF albuterol sulfate 90 mcg/actuation HFA aerosol inhaler 2 puff inhalation Q6H PRN (Reason: shortness of breath or wheezing) Qty: 8.5 0RF hydrocodone-acetaminophen 5-325 mg tablet 1 tab PO Q6H PRN (Reason: pain) Qty: 14 0RF No Action losartan 50 mg tablet 50 mg PO DAILY metformin 500 mg tablet 500 mg PO BID ondansetron 4 mg tablet,disintegrating 4 mg PO Q8H PRN (Reason: nausea and vomiting) Qty: 30 0RF Stand Alone Forms: Patient Portal/API/Survey
[2024-04-30] MEDS: SODIUM CHLORIDE 0.9% 1,000 ML 1000 ML IV (05:42)
--- NOTE | 2024-04-30 05:42 | DI.RAD.S_ITS ---
PROCEDURE: XR CHEST 2V INDICATIONS: cough, inc HR TECHNIQUE: 2 views of the chest were acquired. COMPARISON: [facility], CR, XR CHEST 1V, 07/12/2023, 7:30. [facility], CR, XR CHEST 1V, 12/02/2020, 15:46. FINDINGS: Surgical changes and devices: None. Lungs and pleura: Peribronchial cuffing. Patchy bilateral airspace opacities. Mediastinum: Mediastinal contours are normal. Heart size is normal. Bones and chest wall: No suspicious bony abnormalities. Soft tissues appear unremarkable. IMPRESSION: Peribronchial cuffing with patchy bilateral airspace opacities. Findings may indicate bronchitis with early bronchopneumonia. Recommend follow-up in 1-2 months with chest x-ray to ensure resolution. Agree with preliminary report. Dictated by: Jermain Armenta M.D. on 04/30/2024 at 8:55 Approved by: Jermain Armenta M.D. on 04/30/2024 at 8:56
[2024-04-30 05:48] LABS: Add Manual Diff / Slide Review NO; Basophils Absolute Auto 200 /uL (0-100); Basophils Percent Auto 0.8 % (0-2); Eosinophils Absolute Auto 0 /uL (0-450); Eosinophils Percent Auto 0.1 % (2-4); Hematocrit 43.6 % (41-53); Hemoglobin 14.7 g/dL (13.5-17.5); Lymphocytes Absolute Auto 1400 /uL (1100-4500); Mean Corpuscular HGB Conc 33.8 % (30-36); Mean Corpuscular Hemoglobin 29.2 PG (26-34); Mean Corpuscular Volume 86.5 fL (80-100); Monocytes Absolute Auto 800 /uL (0-900); Monocytes Percent Auto 3.9 % (3-14); Neutrophils Absolute Auto 18100 /uL (1500-7000); Neutrophils Percent Auto 88.2 % (50-75); Platelet Count 380 X10^3/uL (150-400); Red Blood Cell Count 5.03 X10^6/uL (4.5-5.9); Red Cell Distribution Width 14.1 % (11.6-14.8); White Blood Cell Count 20.6 X10^3/uL (4.5-11.0)
--- NOTE | 2024-04-30 05:50 | EKG_ITS ---
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
[2024-04-30 05:55] LABS: Influenza A - CEPHEID Flu A NEGATIVE (NEGATIVE); Influenza B - CEPHEID Flu B NEGATIVE (NEGATIVE); Respiratory Syncytial Virus Negative (Negative)
[2024-04-30 05:57] LABS: COVID-19 CEPHEID 4-PLEX PCR Negative (Negative)
[2024-04-30 06:03] LABS: Alanine Aminotransferase 18 IU/L (<50); Albumin 3.9 g/dL (3.5-5.0); Albumin Globulin Ratio 0.9 (1.0-2.8); Alkaline Phosphatase 167 U/L (38-126); Aspartate Aminotransferase 19 IU/L (17-59); BUN Creatinine Ratio 18.1 (6-22); Bilirubin Total 0.8 mg/dL (0.2-1.3); Blood Urea Nitrogen 13 mg/dL (9-20); Calcium 8.8 mg/dL (8.4-10.2); Carbon Dioxide 25 mmol/L (22-32); Chloride 101 mmol/L (98-107); Estimated Glomerular Filt Rate > 60 mL/min (>60); Globulin 4.4 g/dL (1.7-4.1); Glucose 314 mg/dL (70-100); HEMOLYSIS < 15 (0-50); Potassium 4.2 mmol/L (3.4-5.1); Sodium 136 mmol/L (137-145); Total Protein 8.3 g/dL (6.3-8.2)
[2024-04-30] MEDS: DOXYCYCLINE HYCLATE 100 MG TABLET PO (07:01)
[2024-04-30] MEDS: cefTRIAXone 1,000 MG in SODIUM CHLORIDE 0.9% 100 ML 200 MG IV (07:01)
[2024-04-30 07:28] LABS: Lactate (Lactic Acid) 1.1 mmol/L (0.7-2.1)
== END 2024-04-30 08:05 | disposition home or self-care (01) ==
PROVIDERS: Emergency Provider Emergency Medicine
DX: J18.9 Pneumonia, unspecified organism (principal); R00.0 Tachycardia, unspecified; E11.9 Type 2 diabetes mellitus without complications; F17.210 Nicotine dependence, cigarettes, uncomplicated
CPT/HCPCS: 0241U; 36415; 71046; 80053; 83605; 85025; 87040; 93005; 96361; 96365; 99284; J0696

== ENCOUNTER 2024-05-16 02:47 | Emergency (ER) | payer OTHER, SELFPAY ==
[2020-12-02 21:10] VITALS: BMI 26.7
[2024-05-16] VITALS (10 sets, daily range): BP systolic 126–144; BP diastolic 82–89; PULSE 65–144; RESP 16–39; TEMP 36.7–37.4; O2SAT 98–100; BMI 26.2
--- NOTE | 2024-05-16 03:00 | ED.GENADULT ---
HPI - General Adult <Mauricio Smith MD - Last Filed: 05/16/24 16:36> General Chief complaint: Toxicology Problem Stated complaint: Fentanyl OD Time Seen by Provider: 05/16/24 02:54 History of Present Illness HPI narrative: 59-year-old male with chart history of type 2 diabetes, history of alcohol intoxication, hypertension, prior SHAISTA, admits to use of fentanyl tonight, reportedly bystander friends/family administered seven rounds of intranasal Narcan, no known bystander CPR, transported by EMS with sinus tachycardia, no airway interventions during transport, no seizure activity during transport. No injury, falls known. Blood thinner medications not on his triage medication list. Related Data Home Medications Medication Instructions Recorded Confirmed losartan 50 mg tablet 50 mg PO DAILY 01/31/24 01/31/24 metformin 500 mg tablet 500 mg PO BID 01/31/24 01/31/24 Previous Rx's Medication Instructions Recorded ondansetron 4 mg disintegrating 4 mg PO Q8H PRN nausea and 02/01/24 tablet vomiting #30 tabs albuterol sulfate 90 mcg/actuation 2 puff inhalation Q6H PRN 04/30/24 aerosol inhaler shortness of breath or wheezing #8.5 grams hydrocodone 5 mg-acetaminophen 325 1 tab PO Q6H PRN pain #14 tabs 04/30/24 mg tablet Allergies Allergy/AdvReac Type Severity Reaction Status Date / Time lisinopril [LISINOPRIL] Allergy Unknown Verified 10/28/21 18:44 hydralazine Allergy Verified 02/05/24 12:40 Patient History <Mauricio Smith MD - Last Filed: 05/16/24 16:36> Medical History Alcohol use disorder Type 2 diabetes mellitus COVID-19 Arthritis of knee, left HTN (hypertension) Surgical History H/O arthroscopy Family History Father Hypertension Brother Cancer Social History household members: family and children Smoking Status: Current every day smoker alcohol intake: former substance use type: marijuana Smoking Status: Current every day smoker tobacco type: cigarettes alcohol intake frequency: holidays/special occasions only Alcohol type: beer Exam <Mauricio Smith MD - Last Filed: 05/16/24 16:36> Narrative Exam Narrative: GENERAL: Well-developed patient, in mild distress. Intermittently agitated, generally redirectable. HEAD: Atraumatic. Normocephalic. EYES: Pupils equal round and reactive. Extraocular motions intact. No scleral icterus. No injection or drainage. ENT: Nose without bleeding, purulent drainage. Throat without erythema, tonsillar hypertrophy or exudate. Airway patent. NECK: Trachea midline. Non tender. CARDIOVASCULAR: Fast rate regular rhythm without obvious murmurs, gallops, or rubs. RESPIRATORY: Clear to auscultation. Breath sounds equal bilaterally. No wheezes, rales, or rhonch i. GASTROINTESTINAL: Abdomen soft, non-tender, nondistended. EXTREMITIES: No edema or joint tenderness. BACK: Nontender without deformity or crepitance. No flank tenderness. NEURO: AOx3. Motor functions grossly nonfocal, variably followed commands, generally redirectable. SKIN: No rash or erythema of visible areas Initial Vital Signs Initial Vital Signs: Vital Signs Pulse Rate 135 H 05/16/24 02:52 Respiratory Rate 39 H 05/16/24 02:52 Blood Pressure 141/89 H 05/16/24 02:52 Pulse Oximetry 99 05/16/24 02:52 <Amanda Sahu MD - Last Filed: 05/16/24 17:46> Initial Vital Signs Initial Vital Signs: Vital Signs Pulse Rate 135 H 05/16/24 02:52 Respiratory Rate 39 H 05/16/24 02:52 Blood Pressure 141/89 H 05/16/24 02:52 Pulse Oximetry 99 05/16/24 02:52 Course <Mauricio Smith MD - Last Filed: 05/16/24 16:36> Orders Ordered: Discontinued Medications Sodium Chloride (Normal Saline 0.9%) 1,000 mls @ 1,000 mls/hr IV BOLUS ONE Stop: 05/16/24 04:08 Last Infusion: 05/16/24 04:16 Dose: Infused Documented By: Admin: 05/16/24 03:12 Dose: 1,000 mls/hr Documented By: REEMA Metoprolol Tartrate (Metoprolol Ir 25 Mg Tablet) 25 mg PO NOW ONE Stop: 05/16/24 04:39 Last Admin: 05/16/24 04:57 Dose: 25 mg Documented By: GENE Naloxone HCl (Naloxone 4 Mg Nasal [place]) 4 mg MISC DIRECTED ONE Stop: 05/16/24 09:25 Last Admin: 05/16/24 09:36 Dose: 4 mg Documented By: DEVIN Vital Signs Vital signs: Vital Signs - 8 hr 05/16/24 09:55 Temperature 98.1 F Pulse Rate 65 Respiratory Rate 16 Blood Pressure 126/82 Pulse Oximetry 99 Oxygen Delivery Method Room Air <Amanda Sahu MD - Last Filed: 05/16/24 17:46> Orders Ordered: Discontinued Medications Sodium Chloride (Normal Saline 0.9%) 1,000 mls @ 1,000 mls/hr IV BOLUS ONE Stop: 05/16/24 04:08 Last Infusion: 05/16/24 04:16 Dose: Infused Documented By: Admin: 05/16/24 03:12 Dose: 1,000 mls/hr Documented By: REEMA Metoprolol Tartrate (Metoprolol Ir 25 Mg Tablet) 25 mg PO NOW ONE Stop: 05/16/24 04:39 Last Admin: 05/16/24 04:57 Dose: 25 mg Documented By: GENE Naloxone HCl (Naloxone 4 Mg Nasal [place]) 4 mg MISC DIRECTED ONE Stop: 05/16/24 09:25 Last Admin: 05/16/24 09:36 Dose: 4 mg Documented By: DEVIN Vital Signs Vital signs: Vital Signs - 8 hr 05/16/24 09:55 Temperature 98.1 F Pulse Rate 65 Respiratory Rate 16 Blood Pressure 126/82 Pulse Oximetry 99 Oxygen Delivery Method Room Air Medical Decision Making <Mauricio Smith MD - Last Filed: 05/16/24 16:36> Lab Data Lab results reviewed: Yes I reviewed the patient's lab results. Lab results narrative: White blood cell count 81696, hemoglobin 13.8, platelets adequate. Glucose 163. BUN 17 with creatinine 1.18. Sodium 133, potassium 3.7, serum CO2 22. T bili 1.5 slight elevation, otherwise liver functions normal. Initial troponin 0.03 measurable but low. Repeat troponin 0.04 low but measurable. UDS positive for methamphetamine and for amphetamine. 05/16/24 03:00 05/16/24 03:00 Labs: Lab Results 05/16/24 05/16/24 05/16/24 Range/Units 03:00 03:10 05:00 WBC 11.6 H (4.5-11.0) X10^3/uL RBC 4.66 (4.5-5.9) X10^6/uL Hgb 13.8 (13.5-17.5) g/dL Hct 40.8 L (41-53) % MCV 87.6 (80-100) fL MCH 29.6 (26-34) PG MCHC 33.8 (30-36) % RDW 15.2 H (11.6-14.8) % Plt Count 197 (150-400) X10^3/uL Neut % (Auto) 67.2 (50-75) % Lymph % (Auto) 23.3 L (25-40) % [place] % (Auto) 5.8 (3-14) % Eos % (Auto) 2.8 (2-4) % Baso % (Auto) 0.9 (0-2) % Neut # (Auto) 7800 H (8443-5910) /uL Lymph # (Auto) 2700 (6691-9540) /uL [place] # (Auto) 700 (0-900) /uL Eos # (Auto) 300 (0-450) /uL Baso # (Auto) 100 (0-100) /uL Sodium 133 L (137-145) mmol/L Potassium 3.7 (3.4-5.1) mmol/L Chloride 98 (98-107) mmol/L Carbon Dioxide 22 (22-32) mmol/L BUN 17 (9-20) mg/dL Creatinine 1.18 (0.66-1.25) mg/dL Estimated GFR > 60 (>60) mL/min BUN/Creatinine Ratio 14.4 (6-22) Glucose 163 H (70-100) mg/dL Calcium 8.8 (8.4-10.2) mg/dL Magnesium 1.8 (1.6-2.3) mg/dL Total Bilirubin 1.5 H (0.2-1.3) mg/dL AST 35 (17-59) IU/L ALT 24 (<50) IU/L Alkaline Phosphatase 83 (38-126) U/L Troponin I 0.030 0.041 H (0.01-0.034) ng/mL Total Protein 7.9 (6.3-8.2) g/dL Albumin 4.3 (3.5-5.0) g/dL Globulin 3.6 (1.7-4.1) g/dL Albumin/Globulin Ratio 1.2 (1.0-2.8) U Opiates 300ng/mL cut Negative (Negative) Ur Oxycodone Screen Negative (Negative) Urine Methadone Screen Negative (Negative) Ur Barbiturates Screen Negative (Negative) U Tricyclic Antidepress Negative (Negative) Ur Phencyclidine Scrn Negative (Negative) Ur Amphetamines Screen Positive H (Negative) U Methamphetamines Scrn Positive H (Negative) Ur MDMA Scrn (Ecstasy) Negative (Negative) U Benzodiazepines Scrn Negative (Negative) Urine Cocaine Screen Negative (Negative) U Marijuana (THC) Screen Negative (Negative) Urine pH Normal (Normal) Urine Specific [place] Normal (Normal) Ur Creatinine Normal (Normal) ECG Data Attestation: I personally reviewed and interpreted this ECG as follows: Interpretation: 0301, Sinus tachycardia with frequent PVCs, ventricular rate 127. No obvious ST segment elevation or depression changes. ND 134, QRS 90, QTC 450. 0323, sent tachycardia with frequent PVCs, ventricular rate 140. ND 124, QRS 88, QTC 424. MDM Narrative Medical decision making narrative: 59-year-old diabetic male admits to recent fentanyl use, prompting family/friends to administer 7 rounds of Narcan, arrival by EMS, no Narcan administered by EMS, somewhat agitated but directable on arrival, maintains airway, variably follows commands, no gross motor deficit. No head trauma obvious. Labs pending including UDS. Glucose normal. Sinus tachycardia on EKG noted. Electrolytes unremarkable, glucose normal, UDS positive for methamphetamine and amphetamine. Heart rate 120 slight decreased, we will further monitor for now. UDS positive for methamphetamine amphetamine, but negative for cocaine, we will add beta-law to help control heart rate. 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 P.o. metoprolol 25 mg. 0600, heart rate improved, tends to be 90-110 range, patient sleeping, difficult to arouse. No family present. 0700, patient is still sleeping, difficult to arouse, no head/face trauma obvious, no CT Head imaging done, methamphetamine/amphetamine noted on UDS. Await improved mental status for disposition plan. Signed out to oncoming ED shift physician Dr. Sahu. 699 Dr Sahu chart is reviewed, patient is independently evaluated. Patient is still sleepy however it also sounds like he has used a significant methamphetamine over the last couple of days no sleep for a couple of days. Heart rate and blood pressure comes down. He is maintaining his airway with respiratory rate remaining in the 16-18 range in saturations appropriate on room air. He states that he has been through [facility] and use Suboxone in the past most recently about a year ago. He does not sound like he is even in the contemplative phase of returning to recovery at this time. He states that he does not currently have fentanyl at home. He does have a safe place to live. He will need to take the bus to get home does not have somebody called to pick him up. Medically he is ready for discharge, he is still too sedated overall to competently walk out and get to the bus stop to safely get home. We will continue to work on transportation options. He will be discharged, he is given Narcan to have available at home. He will be given contact numbers for the [facility]. <Amanda Sahu MD - Last Filed: 05/16/24 17:46> Lab Data Labs: Lab Results 05/16/24 05/16/24 05/16/24 Range/Units 03:00 03:10 05:00 WBC 11.6 H (4.5-11.0) X10^3/uL RBC 4.66 (4.5-5.9) X10^6/uL Hgb 13.8 (13.5-17.5) g/dL Hct 40.8 L (41-53) % MCV 87.6 (80-100) fL MCH 29.6 (26-34) PG MCHC 33.8 (30-36) % RDW 15.2 H (11.6-14.8) % Plt Count 197 (150-400) X10^3/uL Neut % (Auto) 67.2 (50-75) % Lymph % (Auto) 23.3 L (25-40) % [place] % (Auto) 5.8 (3-14) % Eos % (Auto) 2.8 (2-4) % Baso % (Auto) 0.9 (0-2) % Neut # (Auto) 7800 H (6193-2393) /uL Lymph # (Auto) 2700 (7181-8662) /uL [place] # (Auto) 700 (0-900) /uL Eos # (Auto) 300 (0-450) /uL Baso # (Auto) 100 (0-100) /uL Sodium 133 L (137-145) mmol/L Potassium 3.7 (3.4-5.1) mmol/L Chloride 98 (98-107) mmol/L Carbon Dioxide 22 (22-32) mmol/L BUN 17 (9-20) mg/dL Creatinine 1.18 (0.66-1.25) mg/dL Estimated GFR > 60 (>60) mL/min BUN/Creatinine Ratio 14.4 (6-22) Glucose 163 H (70-100) mg/dL Calcium 8.8 (8.4-10.2) mg/dL Magnesium 1.8 (1.6-2.3) mg/dL Total Bilirubin 1.5 H (0.2-1.3) mg/dL AST 35 (17-59) IU/L ALT 24 (<50) IU/L Alkaline Phosphatase 83 (38-126) U/L Troponin I 0.030 0.041 H (0.01-0.034) ng/mL Total Protein 7.9 (6.3-8.2) g/dL Albumin 4.3 (3.5-5.0) g/dL Globulin 3.6 (1.7-4.1) g/dL Albumin/Globulin Ratio 1.2 (1.0-2.8) U Opiates 300ng/mL cut Negative (Negative) Ur Oxycodone Screen Negative (Negative) Urine Methadone Screen Negative (Negative) Ur Barbiturates Screen Negative (Negative) U Tricyclic Antidepress Negative (Negative) Ur Phencyclidine Scrn Negative (Negative) Ur Amphetamines Screen Positive H (Negative) U Methamphetamines Scrn Positive H (Negative) Ur MDMA Scrn (Ecstasy) Negative (Negative) U Benzodiazepines Scrn Negative (Negative) Urine Cocaine Screen Negative (Negative) U Marijuana (THC) Screen Negative (Negative) Urine pH Normal (Normal) Urine Specific [place] Normal (Normal) Ur Creatinine Normal (Normal) MDM Narrative Medical decision making narrative: 59-year-old male admits to recent fentanyl use, prompting family tonight to administer 7 rounds of Narcan, arrival by EMS, no Narcan administered by EMS, somewhat agitated but directable on arrival, maintains airway, variably follows commands, no gross motor deficit. No head trauma obvious. Labs pending including UDS. Glucose normal. Sinus tachycardia on EKG noted. Electrolytes unremarkable, glucose normal, UDS positive for methamphetamine and amphetamine. Heart rate 120 slight decreased, we will further monitor for now. UDS positive for methamphetamine amphetamine, but negative for cocaine, we will add beta-law to help control heart rate. Sinus tachycardia at 120-140 range noted. P.o. metoprolol 25 mg. 0600, heart rate improved, tends to be 90-110 range, patient sleeping, difficult to arouse. No family present. 0700, patient is still sleeping, difficult to arouse, no head/face trauma obvious, no CT Head imaging done, methamphetamine/amphetamine noted on UDS. Await improved mental status for disposition plan. [facility]. [facility]. 699 Dr Sahu chart is reviewed, patient is independently evaluated. Patient is still sleepy however it also sounds like he has used a significant methamphetamine over the last couple of days no sleep for a couple of days. Heart rate and blood pressure comes down. He is maintaining his airway with respiratory rate remaining in the 16-18 range in saturations appropriate on room air. He states that he has been through [facility] and use Suboxone in the past most recently about a year ago. He does not sound like he is even in the contemplative phase of returning to recovery at this time. He states that he does not currently have fentanyl at home. He does have a safe place to live. He will need to take the bus to get home does not have somebody called to pick him up. Medically he is ready for discharge, he is still too sedated overall to competently walk out and get to the bus stop to safely get home. We will continue to work on transportation options. He will be discharged, he is given Narcan to have available at home. He will be given contact numbers for the [facility]. Discharge Plan Departure Patient Disposition: Home Clinical Impression: Overdose of fentanyl, Methamphetamine abuse, Opioid use disorder Instructions: DI for Substance Use Disorder Activity Restrictions/Additional Instructions: You got very lia last night. Without the help of your friends giving you Narcan at home you would be I have given you more Narcan to use at home, I sincerely hope that you do not need it We briefly talked about getting back into addiction medicine services, after this overdose you are 130 times more likely to of a [id number] cause, 40 times more likely to of chronic respiratory diseases, 30 times more likely to of viral hepatitis, and 25 times more likely to of suicide. Please follow up with at least your primary care physician and carefully consider going back to [place] [address] [place] [address] If you need additional help, feel free to return to the ER Prescriptions: No Action losartan 50 mg tablet 50 mg PO DAILY metformin 500 mg tablet 500 mg PO BID ondansetron 4 mg tablet,disintegrating 4 mg PO Q8H PRN (Reason: nausea and vomiting) Qty: 30 0RF albuterol sulfate 90 mcg/actuation HFA aerosol inhaler 2 puff inhalation Q6H PRN (Reason: shortness of breath or wheezing) Qty: 8.5 0RF hydrocodone-acetaminophen 5-325 mg tablet 1 tab PO Q6H PRN (Reason: pain) Qty: 14 0RF Stand Alone Forms: Patient Portal/API/Survey
--- NOTE | 2024-05-16 03:01 | EKG_ITS ---
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
[2024-05-16] MEDS: SODIUM CHLORIDE 0.9% 1,000 ML 1000 ML IV (03:12)
[2024-05-16 03:16] LABS: Add Manual Diff / Slide Review NO; Basophils Absolute Auto 100 /uL (0-100); Basophils Percent Auto 0.9 % (0-2); Eosinophils Absolute Auto 300 /uL (0-450); Eosinophils Percent Auto 2.8 % (2-4); Hematocrit 40.8 % (41-53); Hemoglobin 13.8 g/dL (13.5-17.5); Lymphocytes Absolute Auto 2700 /uL (1100-4500); Lymphocytes Percent Auto 23.3 % (25-40); Mean Corpuscular HGB Conc 33.8 % (30-36); Mean Corpuscular Hemoglobin 29.6 PG (26-34); Mean Corpuscular Volume 87.6 fL (80-100); Monocytes Absolute Auto 700 /uL (0-900); Monocytes Percent Auto 5.8 % (3-14); Neutrophils Absolute Auto 7800 /uL (1500-7000); Neutrophils Percent Auto 67.2 % (50-75); Platelet Count 197 X10^3/uL (150-400); Red Blood Cell Count 4.66 X10^6/uL (4.5-5.9); Red Cell Distribution Width 15.2 % (11.6-14.8); White Blood Cell Count 11.6 X10^3/uL (4.5-11.0)
--- NOTE | 2024-05-16 03:23 | EKG_ITS ---
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
[2024-05-16 03:27] LABS: Alanine Aminotransferase 24 IU/L (<50); Albumin 4.3 g/dL (3.5-5.0); Albumin Globulin Ratio 1.2 (1.0-2.8); Alkaline Phosphatase 83 U/L (38-126); Aspartate Aminotransferase 35 IU/L (17-59); BUN Creatinine Ratio 14.4 (6-22); Bilirubin Total 1.5 mg/dL (0.2-1.3); Blood Urea Nitrogen 17 mg/dL (9-20); Calcium 8.8 mg/dL (8.4-10.2); Carbon Dioxide 22 mmol/L (22-32); Chloride 98 mmol/L (98-107); Estimated Glomerular Filt Rate > 60 mL/min (>60); Globulin 3.6 g/dL (1.7-4.1); Glucose 163 mg/dL (70-100); HEMOLYSIS < 15 (0-50); Magnesium 1.8 mg/dL (1.6-2.3); Potassium 3.7 mmol/L (3.4-5.1); Sodium 133 mmol/L (137-145); Total Protein 7.9 g/dL (6.3-8.2)
[2024-05-16 03:37] LABS: Ur Creatinine Normal (Normal); Ur Specific Gravity Normal (Normal); Urine Tetrahydrocannabinol Negative (Negative); Urine pH Normal (Normal)
[2024-05-16 03:38] LABS: UR Morphine/Opiate cutoff 300 Negative (Negative); Urine Amphetamines Positive (Negative); Urine Barbiturates Negative (Negative); Urine Benzodiazepines Negative (Negative); Urine Cocaine Negative (Negative); Urine MDMA Negative (Negative); Urine Methamphetamines Positive (Negative); Urine Phencyclidine Negative (Negative)
[2024-05-16 03:39] LABS: Urine Methadone Negative (Negative); Urine Oxycodone Negative (Negative); Urine Tricyclic Antidepressant Negative (Negative)
[2024-05-16] MEDS: METOPROLOL IR 25 MG TABLET PO (04:57)
[2024-05-16 05:39] LABS: Troponin I 0.041 ng/mL (0.01-0.034)
[2024-05-16] MEDS: NALOXONE 4 MG NASAL SPRAY MISC (09:36)
--- NOTE | 2024-05-16 09:54 | PC.NURSE ---
Arousable. Alert and oriented x4.
== END 2024-05-16 09:58 | disposition home or self-care (01) ==
PROVIDERS: Emergency Provider Emergency Medicine
DX: T40.411A Poisoning by fentanyl or fentanyl analogs, accidental (unintentional), initial encounter (principal); F15.10 Other stimulant abuse, uncomplicated; F11.90 Opioid use, unspecified, uncomplicated; R00.0 Tachycardia, unspecified
CPT/HCPCS: 80053; 80305; 83735; 84484; 85025; 93005; 96360; 99284; A9270